=== PATIENT | female | born 1945 | race Caucasian/White ===

== ENCOUNTER → 2018-08-02 14:48 | Outpatient (CLI) | payer MEDICARE, SELFPAY ==
--- NOTE | 2018-08-02 14:59 | CA_ITS ---
PROCEDURE: 2-D M-mode and color Doppler study INDICATIONS FOR THE TEST: Chest pain COPDX Heart Murmur Tobacco SmokingX Palpitations Fatigue Syncope EdemaX Hypertension Diabetes Mellitus Rheumatic Fever SOBXDOEXObesity Hyperlipidemia Family History HD Additional History PHTN PATIENT INFORMATION HEIGHT: 57 WEIGHT:88 GENDER: Female B/P:140/70 2-D/M-MODE INTERPRETATION: 2-D MEASUREMENTS OBSERVED VALUES IN CMS Right Ventricular Dimension (RVDd) 2.6 Interventricular Septum (Thickness)(IVsd) .8 Left Ventricular Internal Dimensions(LVIDd) 4.6 Left Ventricular Posterior Wall (Thickness)(LVPWd) .8 Aortic Root 3.2 Aortic Cusp Separation 1.7 Left Atrial Dimensions (LAD) 3.3 2D 1. Left atrium is mildly enlarged, left ventricle is normal size, there is no concentric left ventricular hypertrophy, visually estimated ejection fraction of 55% with no regional wall motion abnormality. 2. The right atrium and right ventricle are relatively normal size and function. 3. The aortic valve is thickened and calcified leaflet continue to display mobility. 4. The mitral and tricuspid valve leaflets are minimally thickened. 5. The pulmonic valve is poorly visualized. 6. No significant pericardial effusion noted. DOPPLER INTERROGATION: Doppler interrogation of the aortic, mitral and tricuspid valvular presence of significant aortic, mild mitral and tricuspid regurgitation, tricuspid regurgitation jet velocity is inadequate for calculation of the right ventricular systolic pressure, tissue Doppler is indicated of raised left atrial pressure. CONCLUSION: 1. Mildly enlarged left atrium, normal left ventricular size, visually estimated ejection fraction 55% with no regional wall motion abnormality, tissue Doppler evidence of raised left atrial pressure. 2. Severe aortic, mild mitral and tricuspid regurgitation 3. No significant pericardial effusion noted.
== END ==
PROVIDERS: PCP Family Medicine; Visit Provider Family Medicine
DX: R60.0 Localized edema (principal); I27.20 Pulmonary hypertension, unspecified
CPT/HCPCS: 93306

== ENCOUNTER 2018-08-15 13:05 | Inpatient (IN) ==
[2018-08-15 13:50] LABS: Basophils # 0.1 K/mm3 (0-0.2); Basophils % 0.5 % (0.1-2.0); Eosinophils % 0.1 % (0.1-12.0); Hematocrit 35.9 % (37.0-47.0); Hemoglobin 11.2 g/dL (12.2-16.2); Lymphocytes % 6.8 % (10-50); Mean Corpuscular HGB Conc 31.2 g/dL (31.8-35.4); Mean Corpuscular Hemoglobin 27.8 pg (27.0-31.2); Mean Corpuscular Volume 89.2 fl (81-99); Mean Platelet Volume 7.6 fl (7.4-10.4); Monocytes % 6.4 % (1.7-9.3); Neutrophils % 86.3 % (37.0-80.0); Platelet Count 247 K/mm3 (142-424); Red Blood Count 4.02 M/mm3 (4.20-5.40); Red Cell Distribution Width 14.7 % (11.5-17.5)
[2018-08-15 14:02] LABS: Albumin Level 3.1 gm/dL (3.4-5.0); Albumin/Globulin Ratio 0.8 (1.1-1.8); Anion Gap 13.8 mEq/L (5-15); Bilirubin,Total 0.6 mg/dL (0.2-1.0); Globulin 4.1 gm/dl (1.3-3.2); Total Protein,Serum 7.2 gm/dL (6.4-8.2)
[2018-08-15 14:05] LABS: Potassium 2.8 mmoL/L (3.5-5.1)
[2018-08-15 14:14] LABS: Eosinophils % 1 % (0-3); Lymphocytes % 6 % (10-50); Monocytes % 5 % (2-9); Neutrophils % 85 % (42-76); Total Cells Counted 100
[2018-08-15 14:16] LABS: Creatine Kinase 38 U/L (26-192)
--- NOTE | 2018-08-15 14:19 | Emergency Department Note ---
ED Disposition Clinical Impression: Acute exacerbation of chronic obstructive airways disease, Tobacco use disorder, Hypokalemia, Shortness of breath URI (upper respiratory infection) Qualifiers: URI type: unspecified URI Qualified Code(s): J06.9 - Acute upper respiratory infection, unspecified Disposition: Home, Self-Care Condition on Discharge: Fair Instructions: DI for Chronic Bronchitis, DI for Chronic Obstructive Pulmonary Disease, DI for Shortness of Breath Additional Instructions: DI for Hypokalemia Referrals: Clayton Isabel MD [Primary Care Provider] - Time of Disposition: 16:46 - Critical Care Critical Care Time: Yes (60) Attestation: On 08/15/18, the high probability of a clinically significant, sudden or life threatening deterioration of the following system(s) required my full and direct attention, intervention and personal management. The time I documented below is in addition to time spent performing reported procedures but includes the following listed in this critical care notation. Total Critical Care Time: 60 Vital system(s) involved:: Respiratory Failure My critical care processes included: Assessment & monitoring of V/S, Initial and Re-exams, Data Review/Interpretation, Coordinating Care, Medication Orders and management, Documentation Medical Decision Making - Medical Records Medical records reviewed: Yes: I reviewed the patient's medical records. - Vamsi Inquiry Pt receiving controlled substance: No Vamsi was queried for this patient: No Vital Signs: 08/15/18 13:06 08/15/18 13:36 08/15/18 14:06 Temperature 99.5 F 99.3 F 99.3 F Temperature Source Oral Oral Oral Pulse Rate [Right Radial] 107 H 99 H 98 H Respiratory Rate 22 22 20 Blood Pressure [Right Arm] 102/59 L 118/58 L 115/55 L Blood Pressure Mean [Right Arm] 73 78 75 Blood Pressure Source [Right Arm] Automatic Cuff Automatic Cuff Automatic Cuff Blood Pressure Position [Right Arm] Sitting Supine Supine 02 Sat by Pulse Oximetry 74 L 95 94 L Oxygen Delivery Method Room Air Nasal Cannula Nasal Cannula Oxygen Flow Rate (LPM) 3 3 2 08/15/18 14:30 08/15/18 14:36 08/15/18 15:00 Temperature 99.6 F 99.7 F H Temperature Source Oral Oral Pulse Rate [Right Radial] 99 H 100 H Respiratory Rate 18 20 Blood Pressure [Right Arm] 116/54 L 117/55 L Blood Pressure Mean [Right Arm] 74 75 Blood Pressure Source [Right Arm] Automatic Cuff Automatic Cuff Blood Pressure Position [Right Arm] Supine Sitting 02 Sat by Pulse Oximetry 94 L 92 L 92 L Oxygen Delivery Method BiPAP Nasal Cannula Nasal Cannula Oxygen Flow Rate (LPM) 2 2 08/15/18 15:30 08/15/18 16:00 08/15/18 16:36 Temperature 99.0 F Temperature Source Oral Pulse Rate [Right Radial] 89 125 H 132 H Respiratory Rate 18 32 H Blood Pressure [Right Arm] 103/43 L 128/66 138/82 Blood Pressure Mean [Right Arm] 63 86 100 Blood Pressure Source [Right Arm] Automatic Cuff Automatic Cuff Automatic Cuff Blood Pressure Position [Right Arm] Sitting Sitting Sitting 02 Sat by Pulse Oximetry 96 97 91 L Oxygen Delivery Method Nasal Cannula Non-Rebreather Oxygen Flow Rate (LPM) 2 15 - Lab Data Lab results reviewed: Yes: I reviewed the patient's lab results. Lab Results 08/15/18 13:33: WBC 15.0 H, RBC 4.02 L, Hgb 11.2 L, Hct 35.9 L, MCV 89.2, MCH 27.8, MCHC 31.2 L, RDW 14.7, Plt Count 247, MPV 7.6, Neut % (Auto) 86.3 H, Lymph % (Auto) 6.8 L, [place] % (Auto) 6.4, Eos % (Auto) 0.1, Baso % (Auto) 0.5, Neut # (Auto) 13.0 H, Lymph # (Auto) 1.0, [place] # (Auto) 1.0, Eos # (Auto) 0.0, Baso # (Auto) 0.1, Total Counted 100, Neutrophils % (Manual) 85 H, Band Neutrophils % 3.0, Lymphocytes % (Manual) 6 L, Monocytes % (Manual) 5, Eosinophils % (Manual) 1, Platelet Estimate Normal 08/15/18 13:33: Sodium 136, Potassium 2.8 L*, Chloride 96 L, Carbon Dioxide 29, Anion Gap 13.8, BUN 10, Creatinine 0.87, Estimated Creat Clear 31, Estimated GFR 64, Est GFR ( Amer) 77, Glucose 133 H, Calcium 9.0, Total Bilirubin 0.6, AST 25, ALT 26, Alkaline Phosphatase 142 H, Total Protein 7.2, Albumin 3.1 L, Globulin 4.1 H, Albumin/Globulin Ratio 0.8 L 08/15/18 13:33: Lactate 1.7 08/15/18 13:33: Total Creatine Kinase 38, CK-MB (CK-2) 1.5, CK-MB (CK-2) Rel Ind ex 3.9, Troponin I < 0.02 08/15/18 13:36: Specimen Source L radial, O2 % 2lpm, ABG pH 7.38, ABG pCO2 47.9 H, ABG pO2 61.4 L, ABG HCO3 27.4 H, ABG Total CO2 28.9 H, ABG O2 Saturation 91, ABG Base Excess 2.3, Cirilo Test Acceptable 08/15/18 16:19: Specimen Source R. radial, O2 % 100% nrb, ABG pH 7.21 L*, ABG pCO2 67.0 H, ABG pO2 184.1 H, ABG HCO3 26.1 H, ABG Total CO2 28.1 H, ABG O2 Saturation 99, ABG Base Excess -1.8, Cirilo Test Acceptable Result diagrams: 08/15/18 13:33 08/15/18 13:33 Orders (Tests/Meds): ED MEDICATIONS Generic Name Dose Route Start Last Admin Trade Name Freq PRN Reason Stop Dose Admin Sodium Chloride 1,000 mls @ 75 mls/hr 08/15/18 14:30 08/15/18 14:31 Sod Chlor 0.9% 1000ml Bag IV 09/14/18 14:29 75 mls/hr .[id number] DUANE Administration Sodium Chloride 1,000 mls @ 999 mls/hr 08/15/18 17:00 08/15/18 16:49 Sod Chlor 0.9% 1000ml Bag IV 08/15/18 18:00 999 mls/hr .[id number] DUANE Administration Discontinued Medications Generic Name Dose Route Start Last Admin Trade Name Freq PRN Reason Stop Dose Admin Guaifenesin 10 ml 08/15/18 14:25 08/15/18 14:31 Robitussin Dm 200mg/20mg 10ml Udc PO 08/15/18 14:26 10 ml ONCE ONE Administration Potassium Chloride/Water 100 mls @ 100 mls/hr 08/15/18 14:09 08/15/18 14:18 Potassium Chloride 10meq/100ml Ivpb IV 08/15/18 15:08 100 mls/hr ONCE ONE Administration Ceftriaxone Sodium 1 gm/ 50 mls @ 100 mls/hr 08/15/18 14:26 08/15/18 15:49 Sodium Chloride IV 08/15/18 14:55 100 mls/hr ONCE ONE Administration Protocol Methylprednisolone Sodium Succinate 125 mg 08/15/18 16:08 08/15/18 16:09 Solu-Medrol 125mg/2ml Vial IV 08/15/18 16:09 125 mg ONCE ONE Administration Ondansetron HCl 4 mg 08/15/18 14:14 08/15/18 14:18 Zofran 4mg/2ml Vial IV 08/15/18 14:15 4 mg ONCE ONE Administration Ondansetron HCl 4 mg 08/15/18 16:08 08/15/18 16:10 Zofran 4mg/2ml Vial IV 08/15/18 16:09 4 mg ONCE ONE Administration Potassium Chloride 40 meq 08/15/18 14:08 08/15/18 15:28 Klor-Con 20meq Tablet PO 08/15/18 14:09 40 meq ONCE ONE Administration ORDERS Category Date Time Status Blood Culture Stat Micro 08/15/18 13:28 Ordered ABG [Arterial Blood Gas] Stat RT 08/15/18 16:09 Ordered Arterial Blood Gas Stat RT 08/15/18 13:36 Ordered - Radiology Data #1 Image(s): Chest Image Reviewed: Yes I reviewed the patient's radiology results, Yes I have reviewed radiologist's interpretation Preliminary Findings: Normal/NAD - Physician Consults Physician Consulted: Katie Time: 16:37 (Admit) Reason -: Admission, Pt condition - Reevaluation(s) Time: 16:00 (Patient started to vomit and choke and became more SOB;Duoneb,Solumedrol,BIPAP started.Will be admitted.) Time: 16:24 (Not doing well. Not tolerating BIPAP. Will intubate.) Time reevaluation 3: 16:35 (Tolerating BIPAP now. ABG shows 7.21/67/187/99%. Admit) Resp/SOB HPI - General Chief Complaint: Shortness of Breath/Dyspnea Stated Complaint: SOA Time Seen by Provider: 08/15/18 13:25 Mode of Arrival: Wheelchair Source of Information: Patient Limitations: No Limitations Description of Symptoms (Recalled from ER Triage Doc. by RN): SHORTNESS OF BREATH SINCE THIS MORNING. WENT TO [facility] AND WAS TOLD TO COME TO ER FOR LOW O2 - History of Present Illness MD Complaint: shortness of breath, cough Onset (ago): day(s) (today) Context: other (cough,voice loss) Severity: moderate Consistency/Duration: constant Relieving factors: nothing Exacerbating factors: nothing Known history of: COPD Associated symptoms: cough, nausea/vomiting Treatment prior to arrival: bronchodilator, diuretics - Related Data Home oxygen amount: 2 liters Home Medications Medication Instructions Recorded Confirmed Albuterol Sulfate [Albuterol HFA 1 - 2 puffs IH Q4-6H PRN 08/15/18 08/15/18 Inhaler] Magnesium Amino Acid Chelate 100 mg PO DAILY 08/15/18 08/15/18 [Magnesium] Montelukast Sodium [Singulair 10mg 10 mg PO PM 08/15/18 08/15/18 tablet] Primidone [Mysoline] 50 mg PO TID 08/15/18 08/15/18 Tiotropium Titus [Spiriva 1 puff INHALATION DAILY 08/15/18 08/15/18 18mcg/puff inhaler] Allergies Allergy/AdvReac Type Severity Reaction Status Date / Time doxycycline [DOXYCYCLINE] Allergy Severe I-HIVES, Verified 08/15/18 14:30 ITCHING, NAUSEA/VOMITING Sulfa (Sulfonamide Allergy Unknown Verified 08/15/18 14:30 Antibiotics) [facility] History I have reviewed the patient's past medical history: Yes ROS Obtained: Yes All systems reviewed & no additional complaints - Constitutional Constitutional: Reports system reviewed and no additional complaints, except as docu, Denies chills, Denies fever(s) - ENT Ears, Nose, Mouth, and Throat: Reports system reviewed and no additional complaints, except as docu, Reports change in voice, Denies nasal congestion, Denies nasal obstruction - Cardiovascular Cardiovascular: Reports system reviewed and no additional complaints, except as docu, Denies chest pain, Reports dyspnea - Respiratory Respiratory: Yes system reviewed and no additional complaints, except as docu, Yes cough, Yes non-productive cough, Yes dyspnea, No stridor, No wheezing - Gastrointestinal Gastrointestingal: Reports: system reviewed and no additional complaints, except as docu, nausea, vomiting. Denies: abdominal pain - Neurologic Neurologic: Reports system reviewed and no additional complaints, except as docu Physical Exam - General General appearance: alert, in no apparent distress - Head Head exam: atraumatic, normocephalic, normal inspection - ENT ENT exam: Present: normal exam, normal oropharynx, mucous membranes moist, TM's normal bilaterally, normal external ear exam - Neck Neck exam: Present: normal inspection, full ROM, trachea midline. Absent: meningismus, lymphadenopathy - Respiratory Respiratory exam: Present: respiratory distress, other (Reduced AE bilaterally.) - Cardiovascular Cardiovascular exam: Present: regular rate, normal rhythm. Absent: JVD - Abdominal Exam Abdominal exam: Present: soft, normal bowel sounds. Absent: distention, tenderness, guarding - Extremities Exam Extremities exam: Present: normal inspection, full ROM, normal capillary refill. Absent: calf tenderness - Back Exam Back exam: Present: normal inspection. Absent: tenderness - Neurological Exam Neurological exam: Present: alert, oriented X3 - Psychiatric Psychiatric exam: Present: normal affect, normal mood - Skin Skin exam: Present: warm, dry, intact, normal color
[2018-08-15 14:20] LABS: ABG Base Excess 2.3 mmol/L (-2.4-2.3); ABG HCO3 27.4 mmhg (22.0-26.0); ABG Oxygen Saturation 91 % (90-100); ABG PCO2 47.9 mmhg (35.0-45.0); ABG PH 7.38 mmol/L (7.35-7.45); ABG PO2 61.4 mmhg (80-100); ABG TCO2 28.9 mmhg (23-27)
[2018-08-15 14:21] LABS: Allen's Test ACCEPTABLE; Oxygen 2LPM %
[2018-08-15 16:23] LABS: ABG Base Excess -1.8 mmol/L (-2.4-2.3); ABG HCO3 26.1 mmhg (22.0-26.0); ABG Oxygen Saturation 99 % (90-100); ABG PH 7.21 mmol/L (7.35-7.45); ABG PO2 184.1 mmhg (80-100); ABG TCO2 28.1 mmhg (23-27)
[2018-08-15 16:28] LABS: Allen's Test ACCEPTABLE; Oxygen 100% NRB %
[2018-08-15 18:14] LABS: ABG Base Excess -2.9 mmol/L (-2.4-2.3); ABG HCO3 23.4 mmhg (22.0-26.0); ABG Oxygen Saturation 93 % (90-100); ABG PCO2 48.4 mmhg (35.0-45.0); ABG PO2 70.5 mmhg (80-100); ABG TCO2 24.9 mmhg (23-27)
[2018-08-15 18:16] LABS: Oxygen 40% %
[2018-08-15 18:17] LABS: Allen's Test ACCEPTABLE; Tidal Volume BIPAP 14/6
--- NOTE | 2018-08-15 21:22 | History & Physical Report ---
*Admission Date: 08/15/18 <Cadence Hooper 08/15/18 21:53> *Chief complaint: SOA <Cadence Hooper 08/15/18 21:53> *History of present illness: Ms. Mahoney is a 73yo female with a history of oxygen dependent COPD. She has been staying with her daughter for the past 10 days since her daughter's . She did not have her oxygen or potassium while at her home. She normally sleeps with oxygen every night and uses it as needed during the day. She began getting a sore throat and cough last night. She then began getting SOA. She placed oxygen on this am and took a few neb treatments. She did not feel better and called to make an appt at [facility]. She progressively got worse and went to the [facility] instead. Her oxygen was in the low 80's, so they recommended she go to the ER. Her first blood gas in the ER showed a pO2 of 61.4 and a pCO2 of 47.9. It appears she was initially started on oxygen at 2L/min via NC. After the blood gas, she was started on a 100% Nonrebreather. Her next blood gas showed a pO2 of 184.1 and a pCO2 of 67. She was then placed on BIPAP. Her potassium was low and was replaced. Her CXR showed chronic changes. Her WBC was elevated. She was admitted for further evaluation and treatment of her COPD exacerbation. 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, Vit D deficiency <Cadence Hooper 08/15/18 21:53> Laterality Cases: Bilateral: Tonsillectomy <Cadence Hooper 08/15/18 21:53> Other Surgeries: Yes: Cholecystectomy, Tubal Ligation, Other <Cadence Hooper 08/15/18 21:53> Amputation: Yes <Cadence Hooper 08/15/18 21:53> Comment: Right foot bunionectomy, Right knee arthroscopy, T12 kyphoplasty, Esophageal dilatation <Cadence Hooper 08/15/18 21:53> - *Social History Educational Level: Completed High School <Cadence Hooper 08/15/18 21:53> Smoking Status: Current every day smoker <Cadence Hooper 08/15/18 21:53> Tobacco Type: cigarettes <Cadence Hooper 08/15/18 21:53> # Packs/Day (cigarettes): 1 <Cadence Hooper 08/15/18 21:53> #Yrs smoked (if former smoker): 58 <Cadence Hooper 08/15/18 21:53> Alcohol Intake: never <Cadence Hooper 08/15/18 21:53> Occupational Status: retired <Cadence Hooper 08/15/18 21:53> Housing: house <Cadence Hooper 08/15/18 21:53> Household Members: family <Cadence Hooper 08/15/18 21:53> - Psychiatric History Expresses thoughts of harming self/others: None <Cadence Hooper 08/15/18 21:53> Suicide Plan Description: No Plan <Cadence Hooper 08/15/18 21:53> *Family Hx:: Heart Attack <Cadence Hooper 08/15/18 21:53> Comment: COPD, Alzheimers <Cadence Hooper 08/15/18 21:53> Review of Systems - Constitutional Reports weakness, Denies fever(s) <Cadence Hooper 08/15/18 21:53> - Eyes Denies blurry vision, Denies double vision <Cadence Hooper 08/15/18 21:53> - ENT Reports nasal congestion, Reports sore throat <Cadence Hooper 08/15/18 21:53> - *Cardiovascular Reports chest pain, Reports shortness of breath, Reports rapid, pounding, or irregular heartbeat <Cadence Hooper 08/15/18 21:53> - *Respiratory Reports chest congestion, Reports cough, Reports shortness of breath, Reports wheezing <Cadence Hooper 08/15/18 21:53> - *Gastrointestinal Reports loose stools, Reports nausea, Reports vomiting, Denies abdominal pain <Cadence Hooper - 08/15/18 21:53> - *Genitourinary Denies difficulty urinating, Denies painful urination <Cadence Hooper - 08/15/18 21:53> - *Musculoskeletal Reports back pain <Cadence Hooper - 08/15/18 21:53> - *Neurologic Reports headache(s), Reports dizziness, Reports weakness <Cadence Hooper - 08/15/18 21:53> Meds Home Medications Medication Instructions Recorded Confirmed Type Albuterol Sulfate [Albuterol HFA 1 - 2 puffs IH Q4-6H PRN 08/15/18 08/15/18 History Inhaler] Duloxetine HCl [Cymbalta] 60 mg PO DAILY 08/15/18 08/15/18 History Fluticasone/Vilanterol [Breo 1 each IH DAILY 08/15/18 08/15/18 History Ellipta 100-25 Mcg INH] Furosemide [Furosemide 40MG tAB] 40 mg PO DAILY 08/15/18 08/15/18 History Magnesium Amino Acid Chelate 100 mg PO DAILY 08/15/18 08/15/18 History [Magnesium] Montelukast Sodium [Singulair 10mg 10 mg PO PM 08/15/18 08/15/18 History tablet] Potassium Chloride [K-Tab ER 10 10 meq PO DAILY 08/15/18 08/15/18 History mEq] Pregabalin [Lyrica 100mg Cap] 100 mg PO DAILY 08/15/18 08/15/18 History Primidone [Mysoline] 50 mg PO TID 08/15/18 08/15/18 History Umeclidinium [place] [Incruse 62.5 mcg IH DAILY 08/15/18 08/15/18 History Ellipta] <Clayton Isabel - 08/16/18 09:01> Allergies Allergy/AdvReac Type Severity Reaction Status Date / Time doxycycline [DOXYCYCLINE] Allergy Severe I-HIVES, Verified 08/15/18 14:30 ITCHING, NAUSEA/VOMITING Sulfa (Sulfonamide Allergy Unknown Verified 08/15/18 14:30 Antibiotics) <Clayton Isabel - 08/16/18 09:01> Exam Vital signs and Labs for Last 24 Hours: Temp Pulse Resp BP Pulse Ox 97.7 F 110 H 35 H 111/37 L 100 08/16/18 07:54 08/16/18 08:00 08/15/18 17:57 08/16/18 06:01 08/16/18 06:01 Laboratory Results - last 24 hr 08/15/18 13:33: WBC 15.0 H, RBC 4.02 L, Hgb 11.2 L, Hct 35.9 L, MCV 89.2, MCH 27.8, MCHC 31.2 L, RDW 14.7, Plt Count 247, MPV 7.6, Neut % (Auto) 86.3 H, Lymph % (Auto) 6.8 L, [place] % (Auto) 6.4, Eos % (Auto) 0.1, Baso % (Auto) 0.5, Neut # (Auto) 13.0 H, Lymph # (Auto) 1.0, [place] # (Auto) 1.0, Eos # (Auto) 0.0, Baso # (Auto) 0.1, Total Counted 100, Neutrophils % (Manual) 85 H, Band Neutrophils % 3.0, Lymphocytes % (Manual) 6 L, Monocytes % (Manual) 5, Eosinophils % (Manual) 1, Platelet Estimate Normal 08/15/18 13:33: Sodium 136, Potassium 2.8 L*, Chloride 96 L, Carbon Dioxide 29, Anion Gap 13.8, BUN 10, Creatinine 0.87, Estimated Creat Clear 31, Estimated GFR 64, Est GFR ( Amer) 77, Glucose 133 H, Calcium 9.0, Total Bilirubin 0.6, AST 25, ALT 26, Alkaline Phosphatase 142 H, Total Protein 7.2, Albumin 3.1 L, Globulin 4.1 H, Albumin/Globulin Ratio 0.8 L 08/15/18 13:33: Lactate 1.7 08/15/18 13:33: Total Creatine Kinase 38, CK-MB (CK-2) 1.5, CK-MB (CK-2) Rel Index 3.9, Troponin I < 0.02 08/15/18 13:36: Specimen Source L radial, O2 % 2lpm, ABG pH 7.38, ABG pCO2 47.9 H, ABG pO2 61.4 L, ABG HCO3 27.4 H, ABG Total CO2 28.9 H, ABG O2 Saturation 91, ABG Base Excess 2.3, Cirilo Test Acceptable 08/15/18 16:19: Specimen Source R. radial, O2 % 100% nrb, ABG pH 7.21 L*, ABG pCO2 67.0 H, ABG pO2 184.1 H, ABG HCO3 26.1 H, ABG Total CO2 28.1 H, ABG O2 Saturation 99, ABG Base Excess -1.8, Cirilo Test Acceptable 08/15/18 18:12: Specimen Source R. radial, O2 % 40%, ABG pH 7.30 L, ABG pCO2 48.4 H, ABG pO2 70.5 L, ABG HCO3 23.4, ABG Total CO2 24.9, ABG O2 Saturation 93, ABG Base Excess -2.9 L, Cirilo Test Acceptable, Vent Rate 20, Tidal Volume Bipap 14/6 08/15/18 20:20: Troponin I < 0.02 08/16/18 02:05: Troponin I < 0.02 08/16/18 05:55: WBC 13.0 H, RBC 3.35 L, Hgb 9.7 L D, Hct 30.4 L, MCV 90.7, MCH 29.3, MCHC 32.3, RDW 14.7, Plt Count 244, MPV 7.7, Neut % (Auto) 84.1 H, Lymph % (Auto) 9.0 L, [place] % (Auto) 6.7, Eos % (Auto) 0.0 L, Baso % (Auto) 0.1, Neut # (Auto) 10.9 H, Lymph # (Auto) 1.2, [place] # (Auto) 0.9, Eos # (Auto) 0.0, Baso # (Auto) 0.0 08/16/18 05:55: Sodium 137, Potassium 3.6 D, Chloride 102, Carbon Dioxide 27, Anion Gap 11.6, BUN 10, Creatinine 0.73, Estimated Creat Clear 32, Estimated GFR 78, Est GFR ( Amer) 94 D, Glucose 131 H, Calcium 8.4 L, Triglycerides 46, Cholesterol 133 L, LDL Cholesterol 58, VLDL Cholesterol 9, HDL Cholesterol 66, Cholesterol/HDL Ratio 2.0 <Clayton Isabel - 08/16/18 09:01> Temp Pulse Resp BP Pulse Ox 98.4 F 107 H 35 H 122/63 98 08/15/18 17:57 08/15/18 17:57 08/15/18 17:57 08/15/18 17:57 08/15/18 17:57 Laboratory Results - last 24 hr 08/15/18 13:33: WBC 15.0 H, RBC 4.02 L, Hgb 11.2 L, Hct 35.9 L, MCV 89.2, MCH 27.8, MCHC 31.2 L, RDW 14.7, Plt Count 247, MPV 7.6, Neut % (Auto) 86.3 H, Lymph % (Auto) 6.8 L, [place] % (Auto) 6.4, Eos % (Auto) 0.1, Baso % (Auto) 0.5, Neut # (Auto) 13.0 H, Lymph # (Auto) 1.0, [place] # (Auto) 1.0, Eos # (Auto) 0.0, Baso # (Auto) 0.1, Total Counted 100, Neutrophils % (Manual) 85 H, Band Neutrophils % 3.0, Lymphocytes % (Manual) 6 L, Monocytes % (Manual) 5, Eosinophils % (Manual) 1, Platelet Estimate Normal 08/15/18 13:33: Sodium 136, Potassium 2.8 L*, Chloride 96 L, Carbon Dioxide 29, Anion Gap 13.8, BUN 10, Creatinine 0.87, Estimated Creat Clear 31, Estimated GFR 64, Est GFR ( Amer) 77, Glucose 133 H, Calcium 9.0, Total Bilirubin 0.6, AST 25, ALT 26, Alkaline Phosphatase 142 H, Total Protein 7.2, Albumin 3.1 L, Globulin 4.1 H, Albumin/Globulin Ratio 0.8 L 08/15/18 13:33: Lactate 1.7 08/15/18 13:33: Total Creatine Kinase 38, CK-MB (CK-2) 1.5, CK-MB (CK-2) Rel Index 3.9, Troponin I < 0.02 08/15/18 13:36: Specimen Source L radial, O2 % 2lpm, ABG pH 7.38, ABG pCO2 47.9 H, ABG pO2 61.4 L, ABG HCO3 27.4 H, ABG Total CO2 28.9 H, ABG O2 Saturation 91, ABG Base Excess 2.3, Cirilo Test Acceptable 08/15/18 16:19: Specimen Source R. radial, O2 % 100% nrb, ABG pH 7.21 L*, ABG pCO2 67.0 H, ABG pO2 184.1 H, ABG HCO3 26.1 H, ABG Total CO2 28.1 H, ABG O2 Saturation 99, ABG Base Excess -1.8, Cirilo Test Acceptable 08/15/18 18:12: Specimen Source R. radial, O2 % 40%, ABG pH 7.30 L, ABG pCO2 48.4 H, ABG pO2 70.5 L, ABG HCO3 23.4, ABG Total CO2 24.9, ABG O2 Saturation 93, ABG Base Excess -2.9 L, Cirilo Test Acceptable, Vent Rate 20, Tidal Volume Bipap 14/0308/15/18 20:20: Troponin I < 0.02 <Cadence Hooper - 08/15/18 21:53> I & O for Last 24 hours: Intake & Output 08/13/18 08/14/18 08/15/18 08/16/18 11:59 11:59 11:59 11:59 Intake Total 1326 / 1326 Output Total 0 / 0 Balance 1326 / 1326 Weight 89 lb 3 oz <Clayton Isabel - 08/16/18 09:01> Intake & Output 08/13/18 08/14/18 08/15/18 08/16/18 11:59 11:59 11:59 11:59 Output Total 0 / 0 Balance 0 / 0 Weight 85 lb 3 oz <Cadence Hooper - 08/15/18 21:53> Microbiology Reports for the Last 24 Hours: Microbiology 08/15/18 21:26 Sputum - Expectorated Sputum Gram Stain - Final <Clayton Isabel - 08/16/18 09:01> - Constitutional Comments: Does not appear to feel well, BIPAP in place <Cadence Hooper 08/15/18 21:53> - *Routine HEENT Exam Head: Present: normocephalic <Cadence Hooper 08/15/18 21:53> Eye: Present: EOMI, PERRL <Cadence Hooper 08/15/18 21:53> ENT: Present: mucous membranes dry [facility] 08/15/[facility] 21:53> - *Routine Neck Exam Present: supple. Absent: lymphadenopathy [facility] 08/15/18 21:53> - *Routine Respiratory Exam Present: wheezes (bilaterally), diminished air movement <[facility] 08/15/18 21:53> - *Routine Cardiovascular Exam Present: tachycardia [facility] 08/15/18 21:53> - *Routine Abdominal Exam Present: soft, normoactive bowel sounds. Absent: tenderness [facility] 08/15/18 21:53> - *Routine Extremities Exam Absent: cyanosis, clubbing, edema <[facility] 08/15/18 21:53> - *Routine Skin Exam Present: warm. Absent: rash <[facility] 08/15/18 21:53> - *Routine Neurological Exam Present: alert, oriented X3 <[facility] 08/15/18 21:53> H&P: Result - Impressions CXR - Chronic changes, no acute finding <[facility] 08/15/18 21:53> Assessment and Plan (1) Acute exacerbation of chronic obstructive airways disease Current visit: Yes Status: Acute Category: Medical Code(s): J44.1 - Chronic obstructive pulmonary disease with (acute) exacerbation (2) Leukocytosis Current visit: Yes Status: Acute Category: Medical Code(s): D72.829 - Elevated white blood cell count, unspecified (3) Hypokalemia Current visit: Yes Status: Acute Category: Medical Code(s): E87.6 - Hypokalemia (4) Hypercapnia Current visit: Yes Status: Acute Category: Medical Code(s): R06.89 - Other abnormalities of breathing (5) Tobacco use disorder Current visit: Yes Status: Chronic Category: Medical Code(s): F17.200 - Nicotine dependence, unspecified, uncomplicated (6) Oxygen dependent Current visit: Yes Status: Chronic Category: Medical Code(s): Z99.81 - Dependence on supplemental oxygen (7) COPD (chronic obstructive pulmonary disease) Current visit: Yes Status: Chronic Category: Medical Code(s): J44.9 - Chronic obstructive pulmonary disease, unspecified <Cadence Hooper - 08/15/18 21:18> (1) Hypercapnic respiratory failure Current visit: Yes Status: Acute Category: Medical Code(s): J96.92 - Respiratory failure, unspecified with hypercapnia (2) Acute exacerbation of chronic obstructive airways disease Current visit: Yes Status: Acute Category: Medical Code(s): J44.1 - Chronic obstructive pulmonary disease with (acute) exacerbation (3) Leukocytosis Current visit: Yes Status: Acute Category: Medical Code(s): D72.829 - Elevated white blood cell count, u nspecified (4) Hypokalemia Current visit: Yes Status: Acute Category: Medical Code(s): E87.6 - Hypokalemia (5) Tobacco use disorder Current visit: Yes Status: Chronic Category: Medical Code(s): F17.200 - Nicotine dependence, unspecified, uncomplicated (6) Oxygen dependent Current visit: Yes Status: Chronic Category: Medical Code(s): Z99.81 - Dependence on supplemental oxygen (7) COPD (chronic obstructive pulmonary disease) Current visit: Yes Status: Chronic Category: Medical Code(s): J44.9 - Chronic obstructive pulmonary disease, unspecified <MaameClayton Ki - 08/16/18 09:01> - Assessment and plan all Dx Assessment and Plan for all problems:: Symptoms started with hoarseness and drainage 2 days ago. ? viral syndrome. Concur with plan as outlined above. <Clayton Isabel - 08/16/18 09:01> Last ABG has improved with patient on BIPAP. Will start on zithromax, rocephin, IVF's with potassium, duonebs, and some of her home medications. Will get labs tomorrow. She has been given a large dose of solumedrol today. Will start continued steroids tomorrow. <Cadence Hooper - 08/15/18 21:53>
[2018-08-16 06:21] LABS: Basophils % 0.1 % (0.1-2.0); Hematocrit 30.4 % (37.0-47.0); Lymphocytes # 1.2 K/mm3 (0.7-4.5); Mean Corpuscular HGB Conc 32.3 g/dL (31.8-35.4); Mean Corpuscular Hemoglobin 29.3 pg (27.0-31.2); Mean Corpuscular Volume 90.7 fl (81-99); Mean Platelet Volume 7.7 fl (7.4-10.4); Monocytes # 0.9 K/mm3 (0.1-1.0); Monocytes % 6.7 % (1.7-9.3); Neutrophils # 10.9 K/mm3 (1.8-7.8); Neutrophils % 84.1 % (37.0-80.0); Platelet Count 244 K/mm3 (142-424); Red Blood Count 3.35 M/mm3 (4.20-5.40); Red Cell Distribution Width 14.7 % (11.5-17.5)
[2018-08-16 06:33] LABS: Hemoglobin 9.7 g/dL (12.2-16.2)
[2018-08-16 06:51] LABS: Anion Gap 11.6 mEq/L (5-15); Calcium 8.4 mg/dL (8.5-10.1); Potassium 3.6 mmoL/L (3.5-5.1)
--- NOTE | 2018-08-16 08:25 | Progress Note ---
<Cadence Hooper - Last Filed: 08/16/18 08:23> Internal Medicine - PN: Subj *Date: 08/16/18 *Time: 08:23 Interval history: Patient states she is feeling much better today. Her BiPAP has been removed and she has been placed on nasal cannula to eat breakfast. She is eating well. Her oxygen saturation is 96% on 2-1/2 L. Exam Vital signs and Labs for Last 24 Hours: Temp Pulse Resp BP Pulse Ox 97.7 F 126 H 35 H 111/37 L 100 08/16/18 07:54 08/16/18 06:01 08/15/18 17:57 08/16/18 06:01 08/16/18 06:01 Laboratory Results - last 24 hr 08/15/18 13:33: WBC 15.0 H, RBC 4.02 L, Hgb 11.2 L, Hct 35.9 L, MCV 89.2, MCH 27.8, MCHC 31.2 L, RDW 14.7, Plt Count 247, MPV 7.6, Neut % (Auto) 86.3 H, Lymph % (Auto) 6.8 L, [place] % (Auto) 6.4, Eos % (Auto) 0.1, Baso % (Auto) 0.5, Neut # (Auto) 13.0 H, Lymph # (Auto) 1.0, [place] # (Auto) 1.0, Eos # (Auto) 0.0, Baso # (Auto) 0.1, Total Counted 100, Neutrophils % (Manual) 85 H, Band Neutrophils % 3.0, Lymphocytes % (Manual) 6 L, Monocytes % (Manual) 5, Eosinophils % (Manual) 1, Platelet Estimate Normal 08/15/18 13:33: Sodium 136, Potassium 2.8 L*, Chloride 96 L, Carbon Dioxide 29, Anion Gap 13.8, BUN 10, Creatinine 0.87, Estimated Creat Clear 31, Estimated GFR 64, Est GFR ( Amer) 77, Glucose 133 H, Calcium 9.0, Total Bilirubin 0.6, AST 25, ALT 26, Alkaline Phosphatase 142 H, Total Protein 7.2, Albumin 3.1 L, Globulin 4.1 H, Albumin/Globulin Ratio 0.8 L 08/15/18 13:33: Lactate 1.7 08/15/18 13:33: Total Creatine Kinase 38, CK-MB (CK-2) 1.5, CK-MB (CK-2) Rel Index 3.9, Troponin I < 0.02 08/15/18 13:36: Specimen Source L radial, O2 % 2lpm, ABG pH 7.38, ABG pCO2 47.9 H, ABG pO2 61.4 L, ABG HCO3 27.4 H, ABG Total CO2 28.9 H, ABG O2 Saturation 91, ABG Base Excess 2.3, Cirilo Test Acceptable 08/15/18 16:19: Specimen Source R. radial, O2 % 100% nrb, ABG pH 7.21 L*, ABG pCO2 67.0 H, ABG pO2 184.1 H, ABG HCO3 26.1 H, ABG Total CO2 28.1 H, ABG O2 Saturation 99, ABG Base Excess -1.8, Cirilo Test Acceptable 08/15/18 18:12: Specimen Source R. radial, O2 % 40%, ABG pH 7.30 L, ABG pCO2 48.4 H, ABG pO2 70.5 L, ABG HCO3 23.4, ABG Total CO2 24.9, ABG O2 Saturation 93, ABG Base Excess -2.9 L, Cirilo Test Acceptable, Vent Rate 20, Tidal Volume Bipap 14/6 08/15/18 20:20: Troponin I < 0.02 08/16/18 02:05: Troponin I < 0.02 08/16/18 05:55: WBC 13.0 H, RBC 3.35 L, Hgb 9.7 L D, Hct 30.4 L, MCV 90.7, MCH 29.3, MCHC 32.3, RDW 14.7, Plt Count 244, MPV 7.7, Neut % (Auto) 84.1 H, Lymph % (Auto) 9.0 L, [place] % (Auto) 6.7, Eos % (Auto) 0.0 L, Baso % (Auto) 0.1, Neut # (Auto) 10.9 H, Lymph # (Auto) 1.2, [place] # (Auto) 0.9, Eos # (Auto) 0.0, Baso # (Auto) 0.0 08/16/18 05:55: Sodium 137, Potassium 3.6 D, Chloride 102, Carbon Dioxide 27, Anion Gap 11.6, BUN 10, Creatinine 0.73, Estimated Creat Clear 32, Estimated GFR 78, Est GFR ( Amer) 94 D, Glucose 131 H, Calcium 8.4 L, Triglycerides 46, Cholesterol 133 L, LDL Cholesterol 58, VLDL Cholesterol 9, HDL Cholesterol 66, Cholesterol/HDL Ratio 2.0 I & O for Last 24 hours: Intake & Output 08/13/18 08/14/18 08/15/18 08/16/18 11:59 11:59 11:59 11:59 Intake Total 966 / 966 Output Total 0 / 0 Balance 966 / 966 Weight 89 lb 3 oz Microbiology Reports for the Last 24 Hours: Microbiology 08/15/18 21:26 Sputum - Expectorated Sputum Gram Stain - Final - Constitutional no acute distress - *Routine Respiratory Exam Present: rhonchi, wheezes. Absent: rales - *Routine Cardiovascular Exam Present: RRR - *Routine Abdominal Exam Present: soft, normoactive bowel sounds. Absent: tenderness - *Routine Extremities Exam Absent: cyanosis, clubbing, edema Assessment and Plan (1) Acute exacerbation of chronic obstructive airways disease Current visit: Yes Status: Acute Category: Medical Code(s): J44.1 - Chronic obstructive pulmonary disease with (acute) exacerbation (2) Leukocytosis Current visit: Yes Status: Acute Category: Medical Code(s): D72.829 - Elevated white blood cell count, unspecified (3) Hypokalemia Current visit: Yes Status: Acute Category: Medical Code(s): E87.6 - Hypokalemia (4) Hypercapnia Current visit: Yes Status: Acute Category: Medical Code(s): R06.89 - Other abnormalities of breathing (5) Tobacco use disorder Current visit: Yes Status: Chronic Category: Medical Code(s): F17.200 - Nicotine dependence, unspecified, uncomplicated (6) Oxygen dependent Current visit: Yes Status: Chronic Category: Medical Code(s): Z99.81 - Dependence on supplemental oxygen (7) COPD (chronic obstructive pulmonary disease) Current visit: Yes Status: Chronic Category: Medical Code(s): J44.9 - Chronic obstructive pulmonary disease, unspecified - Assessment and plan all Dx Assessment and Plan for all problems:: WBC has improved and potassium has normalized. Patient will likely need a blood gas on nasal cannula to see if we can keep her off of BiPAP. Will discuss this with Dr. Isabel. We will also discuss moving her out of stepdown. <Clayton Isabel Ki - Last Filed: 08/16/18 09:06> Internal Medicine - PN: Subj Interval history: States she feels better but appears weak. Voice is hoarse. Of note, a recent outpt Echo showed severe aortic regurgitation. States she has not had much swelling at home lately. Exam Vital signs and Labs for Last 24 Hours: Temp Pulse Resp BP Pulse Ox 97.7 F 110 H 35 H 111/37 L 100 08/16/18 07:54 08/16/18 08:00 08/15/18 17:57 08/16/18 06:01 08/16/18 06:01 Laboratory Results - last 24 hr 08/15/18 13:33: WBC 15.0 H, RBC 4.02 L, Hgb 11.2 L, Hct 35.9 L, MCV 89.2, MCH 27.8, MCHC 31.2 L, RDW 14.7, Plt Count 247, MPV 7.6, Neut % (Auto) 86.3 H, Lymph % (Auto) 6.8 L, [place] % (Auto) 6.4, Eos % (Auto) 0.1, Baso % (Auto) 0.5, Neut # (Auto) 13.0 H, Lymph # (Auto) 1.0, [place] # (Auto) 1.0, Eos # (Auto) 0.0, Baso # (Auto) 0.1, Total Counted 100, Neutrophils % (Manual) 85 H, Band Neutrophils % 3.0, Lymphocytes % (Manual) 6 L, Monocytes % (Manual) 5, Eosinophils % (Manual) 1, Platelet Estimate Normal 08/15/18 13:33: Sodium 136, Potassium 2.8 L*, Chloride 96 L, Carbon Dioxide 29, Anion Gap 13.8, BUN 10, Creatinine 0.87, Estimated Creat Clear 31, Estimated GFR 64, Est GFR ( Amer) 77, Glucose 133 H, Calcium 9.0, Total Bilirubin 0.6, AST 25, ALT 26, Alkaline Phosphatase 142 H, Total Protein 7.2, Albumin 3.1 L, Globulin 4.1 H, Albumin/Globulin Ratio 0.8 L 08/15/18 13:33: Lactate 1.7 08/15/18 13:33: Total Creatine Kinase 38, CK-MB (CK-2) 1.5, CK-MB (CK-2) Rel Index 3.9, Troponin I < 0.02 08/15/18 13:36: Specimen Source L radial, O2 % 2lpm, ABG pH 7.38, ABG pCO2 47.9 H, ABG pO2 61.4 L, ABG HCO3 27.4 H, ABG Total CO2 28.9 H, ABG O2 Saturation 91, ABG Base Excess 2.3, Cirilo Test Acceptable 08/15/18 16:19: Specimen Source R. radial, O2 % 100% nrb, ABG pH 7.21 L*, ABG pCO2 67.0 H, ABG pO2 184.1 H, ABG HCO3 26.1 H, ABG Total CO2 28.1 H, ABG O2 Saturation 99, ABG Base Excess -1.8, Cirilo Test Acceptable 08/15/18 18:12: Specimen Source R. radial, O2 % 40%, ABG pH 7.30 L, ABG pCO2 48.4 H, ABG pO2 70.5 L, ABG HCO3 23.4, ABG Total CO2 24.9, ABG O2 Saturation 93, ABG Base Excess -2.9 L, Cirilo Test Acceptable, Vent Rate 20, Tidal Volume Bipap 14/6 08/15/18 20:20: Troponin I < 0.02 08/16/18 02:05: Troponin I < 0.02 08/16/18 05:55: WBC 13.0 H, RBC 3.35 L, Hgb 9.7 L D, Hct 30.4 L, MCV 90.7, MCH 29.3, MCHC 32.3, RDW 14.7, Plt Count 244, MPV 7.7, Neut % (Auto) 84.1 H, Lymph % (Auto) 9.0 L, [place] % (Auto) 6.7, Eos % (Auto) 0.0 L, Baso % (Auto) 0.1, Neut # (Auto) 10.9 H, Lymph # (Auto) 1.2, [place] # (Auto) 0.9, Eos # (Auto) 0.0, Baso # (Auto) 0.0 08/16/18 05:55: Sodium 137, Potassium 3.6 D, Chloride 102, Carbon Dioxide 27, Anion Gap 11.6, BUN 10, Creatinine 0.73, Estimated Creat Clear 32, Estimated GFR 78, Est GFR ( Amer) 94 D, Glucose 131 H, Calcium 8.4 L, Triglycerides 46, Cholesterol 133 L, LDL Cholesterol 58, VLDL Cholesterol 9, HDL Cholesterol 66, Cholesterol/HDL Ratio 2.0 I & O for Last 24 hours: Intake & Output 08/13/18 08/14/18 08/15/18 08/16/18 11:59 11:59 11:59 11:59 Intake Total 1326 / 1326 Output Total 0 / 0 Balance 1326 / 1326 Weight 89 lb 3 oz Microbiology Reports for the Last 24 Hours: Microbiology 08/15/18 21:26 Sputum - Expectorated Sputum Gram Stain - Final Assessment and Plan (1) Hypercapnic respiratory failure Current visit: Yes Status: Acute Category: Medical Code(s): J96.92 - Respiratory failure, unspecified with hypercapnia (2) Acute exacerbation of chronic obstructive airways disease Current visit: Yes Status: Acute Category: Medical Code(s): J44.1 - Chronic obstructive pulmonary disease with (acute) exacerbation (3) Leukocytosis Current visit: Yes Status: Acute Category: Medical Code(s): D72.829 - Elevated white blood cell count, unspecified (4) Hypokalemia Current visit: Yes Status: Acute Category: Medical Code(s): E87.6 - Hypokalemia (5) Tobacco use disorder Current visit: Yes Status: Chronic Category: Medical Code(s): F17.200 - Nicotine dependence, unspecified, uncomplicated (6) Oxygen dependent Current visit: Yes Status: Chronic Category: Medical Code(s): Z99.81 - Dependence on supplemental oxygen (7) COPD (chronic obstructive pulmonary disease) Current visit: Yes Status: Chronic Category: Medical Code(s): J44.9 - Chronic obstructive pulmonary disease, unspecified (8) Aortic regurgitation Current visit: Yes Status: Acute Category: Medical Code(s): I35.1 - Nonrheumatic aortic (valve) insufficiency - Assessment and plan all Dx Assessment and Plan for all problems:: Patient seen and examined. She has been off BiPAP for about an hour and tolerating OK with sats in mid 90's. She wants to go home but is clearly not well enough. Still awaiting sputum C&S. Will repeat CXR after hydration over night. Check PCR respiratory panel. Resume steroids.
--- NOTE | 2018-08-16 08:44 | Pharmacy Consult Notes ---
[facility] Pharmacy VTE Monitoring - Patient Demographics Admission date: 08/16/18 Report Date: 08/16/18 Time: 08:44 Allergies/Adverse Reactions: Patient Allergies doxycycline [DOXYCYCLINE] Allergy (Severe, Verified 08/15/18 14:30) I-HIVES, ITCHING, NAUSEA/VOMITING Sulfa (Sulfonamide Antibiotics) Allergy (Unknown, Verified 08/15/18 14:30) Height: 1.5 m Weight: 40.455 kg Patient Problems: Current Active Problems Acute exacerbation of chronic obstructive airways disease (Acute) Tobacco use disorder (Chronic) Hypokalemia (Acute) Shortness of breath (Acute) URI (upper respiratory infection) (Acute) Leukocytosis (Acute) Hypercapnia (Acute) Oxygen dependent (Chronic) COPD (chronic obstructive pulmonary disease) (Chronic) - VTE Risk Labs: VTE Related Lab Results Hgb 9.7 g/dL (12.2-16.2) L D 08/16/18 05:55 Hct 30.4 % (37.0-47.0) L 08/16/18 05:55 Plt Count 244 K/mm3 (142-424) 08/16/18 05:55 BUN 10 mg/dL (7-18) 08/16/18 05:55 Creatinine 0.73 mg/dL (0.55-1.02) 08/16/18 05:55 Estimated Creat Clear 32 mL/min (50-200) 08/16/18 05:55 Was VTE Risk Assessment Performed: Yes VTE Score: 4 VTE Risk Level: Low Risk Clinical Trial Participant: No - Prophylaxis VTE Prophylaxis Ordered?: Yes Types of VTE Prophylaxis: TEDS Knee High Location of Applied Device: Bilateral Lower Extremeties
[2018-08-16 09:26] LABS: Coronavirus 229E Not Detected (NotDetected); Coronavirus NL63 Not Detected (NotDetected); Coronavirus OC43 Not Detected (NotDetected); Coronovirus HKU1,PCR Not Detected (NotDetected)
[2018-08-16 09:38] LABS: ABG Base Excess 0.4 mmol/L (-2.4-2.3); ABG HCO3 26.4 mmhg (22.0-26.0); ABG Oxygen Saturation 91 % (90-100); ABG PH 7.32 mmol/L (7.35-7.45); ABG PO2 62.8 mmhg (80-100)
[2018-08-16 09:39] LABS: Oxygen 2.5 LPM %
[2018-08-16 09:40] LABS: ABG PCO2 51.9 mmhg (35.0-45.0)
[2018-08-17 06:17] LABS: Eosinophils % 0.1 % (0.1-12.0); Hemoglobin 8.8 g/dL (12.2-16.2); Lymphocytes # 0.5 K/mm3 (0.7-4.5); Lymphocytes % 6.1 % (10-50); Mean Corpuscular HGB Conc 30.3 g/dL (31.8-35.4); Mean Corpuscular Hemoglobin 28.1 pg (27.0-31.2); Mean Corpuscular Volume 92.7 fl (81-99); Mean Platelet Volume 7.6 fl (7.4-10.4); Monocytes # 0.4 K/mm3 (0.1-1.0); Monocytes % 4.5 % (1.7-9.3); Neutrophils # 7.6 K/mm3 (1.8-7.8); Neutrophils % 89.4 % (37.0-80.0); Platelet Count 209 K/mm3 (142-424); Red Blood Count 3.13 M/mm3 (4.20-5.40); Red Cell Distribution Width 14.6 % (11.5-17.5); White Blood Count 8.5 K/mm3 (4.8-10.8)
[2018-08-17 06:38] LABS: Anion Gap 15.6 mEq/L (5-15); Calcium 8.4 mg/dL (8.5-10.1); Potassium 4.6 mmoL/L (3.5-5.1)
[2018-08-17 07:26] LABS: Lymphocytes % 11 % (10-50); Monocytes % 2 % (2-9); Neutrophils % 87 % (42-76); Total Cells Counted 100
[2018-08-17 07:28] LABS: RBC Morphology Normal
--- NOTE | 2018-08-17 08:57 | Progress Note ---
Internal Medicine - PN: Subj *Date: 08/17/18 *Time: 08:54 Interval history: Feels a little better. Slept better. Still weak when up. Less SOA. Complains of some RLQ pain off and on 5-6 days. No change in bowels of kidneys. Exam Vital signs and Labs for Last 24 Hours: Temp Pulse Resp BP Pulse Ox 98.2 F 109 H 23 118/56 L 92 L 08/17/18 08:00 08/17/18 08:00 08/17/18 08:00 08/17/18 08:00 08/17/18 08:00 Laboratory Results - last 24 hr 08/16/18 09:10: Chlamy pneumoniae PCR Not detected, Adenovirus (PCR) Not detected, B.parapertussis DNA PCR Not detected, Coronavirus OC43 (PCR) Not detected, Coronavirus HKU1 (PCR) Not detected, Coronavirus 229E (PCR) Not detected, Coronavirus NL63 (PCR) Not detected, Human Metapneumovir PCR Not detected, Influenza A (H1) PCR Not detected, Influ A (H1N1/09) PCR Not detected, Influenza A (H3) PCR Not detected, Influenza Type A (PCR) Not detected, Influenza Type B (PCR) Not detected, M. pneumoniae (PCR) Not detected, Parainfluenza 1 (PCR) Not detected, Parainfluenza 2 (PCR) Not detected, Parainfluenza 3 (PCR) Not detected, Parainfluenza 4 (PCR) Not detected, RSV (PCR) Not detected, Entero/Rhino (PCR) Not detected 08/16/18 09:36: Specimen Source L brachial, O2 % 2.5 lpm, ABG pH 7.32 L, ABG pCO2 51.9 H, ABG pO2 62.8 L, ABG HCO3 26.4 H, ABG Total CO2 28.0 H, ABG O2 Saturation 91, ABG Base Excess 0.4 08/17/18 06:05: WBC 8.5 D, RBC 3.13 L, Hgb 8.8 L, Hct 29.0 L, MCV 92.7, MCH 28.1, MCHC 30.3 L, RDW 14.6, Plt Count 209, MPV 7.6, Neut % (Auto) 89.4 H, Lymph % (Auto) 6.1 L, [place] % (Auto) 4.5, Eos % (Auto) 0.1, Baso % (Auto) 0.0 L, Neut # (Auto) 7.6, Lymph # (Auto) 0.5 L, [place] # (Auto) 0.4, Eos # (Auto) 0.0, Baso # (Auto) 0.0, Total Counted 100, Neutrophils % (Manual) 87 H, Lymphocytes % (Manual) 11, Monocytes % (Manual) 2, Platelet Estimate Normal, RBC Morphology Normal 08/17/18 06:05: Sodium 139, Potassium 4.6 D, Chloride 103, Carbon Dioxide 25, Anion Gap 15.6 H, BUN 11, Creatinine 0.63, Estimated Creat Clear 32, Estimated GFR 92, Est GFR ( Amer) 112, Glucose 136 H, Calcium 8.4 L I & O for Last 24 hours: Intake & Output 08/14/18 08/15/18 08/16/18 08/17/18 11:59 11:59 11:59 11:59 Intake Total 1326 / 1326 2319 / 2319 Output Total 0 / 0 Balance 1326 / 1326 2319 / 2319 Weight 89 lb 3 oz Microbiology Reports for the Last 24 Hours: Microbiology 08/15/18 21:26 Sputum - Expectorated Sputum Gram Stain - Final 08/15/18 21:26 Sputum - Expectorated Sputum Sputum Culture - Preliminary Gram Positive Cocci - Constitutional Comments: dyspneic when talking. Voice is stronger but still hoarse. - *Routine Respiratory Exam Comments: generally diminished BS with bilateral rhonchi and wheezes. - *Routine Cardiovascular Exam Present: RRR - *Routine Abdominal Exam Comments: mild right mid abdominal tenderness. No rebound or guarding. - *Routine Extremities Exam Absent: edema Assessment and Plan (1) Hypercapnic respiratory failure Current visit: Yes Status: Acute Category: Medical Code(s): J96.92 - Respiratory failure, unspecified with hypercapnia (2) Acute exacerbation of chronic obstructive airways disease Current visit: Yes Status: Acute Category: Medical Code(s): J44.1 - Chronic obstructive pulmonary disease with (acute) exacerbation (3) Leukocytosis Current visit: Yes Status: Acute Category: Medical Code(s): D72.829 - Elevated white blood cell count, unspecified (4) Hypokalemia Current visit: Yes Status: Acute Category: Medical Code(s): E87.6 - Hypok alemia (5) Tobacco use disorder Current visit: Yes Status: Chronic Category: Medical Code(s): F17.200 - Nicotine dependence, unspecified, uncomplicated (6) Oxygen dependent Current visit: Yes Status: Chronic Category: Medical Code(s): Z99.81 - Dependence on supplemental oxygen (7) COPD (chronic obstructive pulmonary disease) Current visit: Yes Status: Chronic Category: Medical Code(s): J44.9 - Chronic obstructive pulmonary disease, unspecified (8) Aortic regurgitation Current visit: Yes Status: Acute Category: Medical Code(s): I35.1 - Nonrheumatic aortic (valve) insufficiency - Assessment and plan all Dx Assessment and Plan for all problems:: Clinically looks and feels better. WBC has normalized. K+ is normal. Sputum with Gm (+) cocci. Will continue antibiotics and steroids. Encouraged OOB activity and diet.
[2018-08-17 09:12] LABS: Microscopic, Urine URINE MICROSCOPIC (MICROSCOPIC)
[2018-08-17 09:13] LABS: Appearance,Urine CLEAR (Clear); Bilirubin,Urine Negative (Negative); Blood, Urine TRACE-L (Negative); Color,Urine YELLOW (Yellow); Glucose,Urine (UA) Negative (Negative); Ketones,Urine Negative (Negative); Leukocyte Esterase,Urine Negative (Negative); Protein,Urine Negative (Negative); Specific Gravity, Urine 1.025 (1.005-1.030); Urobilinogen,Urine 0.2 EU/dl (0.2)
[2018-08-17 09:23] LABS: Bacteria,Urine Trace /lpf; Mucus,Urine 1+ /lpf; Squamous Epithelial Cell,Urine Occasional #/hpf (0-5); WBC,Urine Occasional #/hpf (0-3)
[2018-08-18 06:44] LABS: Basophils % 0.1 % (0.1-2.0); Eosinophils % 0.2 % (0.1-12.0); Hemoglobin 9.1 g/dL (12.2-16.2); Lymphocytes # 0.6 K/mm3 (0.7-4.5); Lymphocytes % 6.2 % (10-50); Mean Corpuscular HGB Conc 31.3 g/dL (31.8-35.4); Mean Corpuscular Hemoglobin 28.5 pg (27.0-31.2); Mean Platelet Volume 7.4 fl (7.4-10.4); Monocytes # 0.4 K/mm3 (0.1-1.0); Monocytes % 4.2 % (1.7-9.3); Neutrophils # 8.2 K/mm3 (1.8-7.8); Neutrophils % 89.4 % (37.0-80.0); Platelet Count 264 K/mm3 (142-424); Red Cell Distribution Width 14.9 % (11.5-17.5); White Blood Count 9.2 K/mm3 (4.8-10.8)
[2018-08-18 06:46] LABS: Hematocrit 29.1 % (37.0-47.0)
[2018-08-18 06:48] LABS: Anion Gap 10.6 mEq/L (5-15); Calcium 8.7 mg/dL (8.5-10.1); Potassium 4.6 mmoL/L (3.5-5.1)
[2018-08-18 07:14] LABS: Hypochromasia 1+; Lymphocytes % 11 % (10-50); Neutrophils % 87 % (42-76); Nucleated Red Blood Cells 1; Polychromasia 1+; Total Cells Counted 100
--- NOTE | 2018-08-18 16:43 | Progress Note ---
Internal Medicine - PN: Ady *Date: 08/18/18 *Time: 16:40 Interval history: She remains clinically stable. She is still hoarse. She is in no acute distress. Vital signs and lab work are reviewed. Her oxygen saturations are running 95% range. Exam Vital signs and Labs for Last 24 Hours: Temp Pulse Resp BP Pulse Ox 98.4 F 79 17 130/53 L 95 08/18/18 15:30 08/18/18 15:30 08/18/18 15:30 08/18/18 15:30 08/18/18 15:30 Laboratory Results - last 24 hr 08/18/18 06:00: WBC 9.2, RBC 3.20 L, Hgb 9.1 L, Hct 29.1 L, MCV 91.0, MCH 28.5, MCHC 31.3 L, RDW 14.9, Plt Count 264 D, MPV 7.4, Neut % (Auto) 89.4 H, Lymph % (Auto) 6.2 L, [place] % (Auto) 4.2, Eos % (Auto) 0.2, Baso % (Auto) 0.1, Neut # (Auto) 8.2 H, Lymph # (Auto) 0.6 L, [place] # (Auto) 0.4, Eos # (Auto) 0.0, Baso # (Auto) 0.0, Total Counted 100, Neutrophils % (Manual) 87 H, Band Neutrophils % 2.0, Lymphocytes % (Manual) 11, Nucleated RBCs 1, Platelet Estimate Normal, Polychromasia 1+, Hypochromasia 1+ 08/18/18 06:00: Sodium 136, Potassium 4.6, Chloride 100, Carbon Dioxide 30, Anion Gap 10.6, BUN 15 D, Creatinine 0.67, Estimated Creat Clear 32, Estimated GFR 86, Est GFR ( Amer) 104, Glucose 130 H, Calcium 8.7 I & O for Last 24 hours: Intake & Output 08/16/18 08/17/18 08/18/18 08/19/18 11:59 11:59 11:59 11:59 Intake Total 1326 / 1326 2319 / 2319 770 / 770 240 / 240 Output Total 0 / 0 150 / 150 1650 / 1650 1100 / 1100 Balance 1326 / 1326 2169 / 2169 -880 / -880 -860 / -860 Weight 89 lb 3 oz Microbiology Reports for the Last 24 Hours: Microbiology 08/15/18 21:26 Sputum - Expectorated Sputum Gram Stain - Final 08/15/18 21:26 Sputum - Expectorated Sputum Sputum Culture - Final Kocuria Species 08/15/18 13:28 Blood Blood Culture - Preliminary NO GROWTH AFTER 48 HOURS 08/15/18 13:28 Blood Blood Culture - Preliminary NO GROWTH AFTER 48 HOURS - Constitutional no acute distress Comments: Small and frail appearing. - *Routine HEENT Exam ENT: Present: mucous membranes moist Comments: There is no inflammation of the throat. She has some mucus present. It is noted that the uvula is absent secondary to surgical procedure for sleep apnea. - *Routine Respiratory Exam Present: decreased breath sounds, CTA bilaterally. Absent: wheezes - *Routine Cardiovascular Exam Present: RRR - *Routine Abdominal Exam Present: soft. Absent: tenderness - *Routine Extremities Exam Absent: edema - *Routine Neurological Exam Present: alert, oriented X3 Assessment and Plan (1) Hypercapnic respiratory failure Current visit: Yes Status: Acute Category: Medical Code(s): J96.92 - Respiratory failure, unspecified with hypercapnia (2) Acute exacerbation of chronic obstructive airways disease Current visit: Yes Status: Acute Category: Medical Code(s): J44.1 - Chronic obstructive pulmonary disease with (acute) exacerbation (3) Leukocytosis Current visit: Yes Status: Acute Category: Medical Code(s): D72.829 - Elevated white blood cell count, unspecified (4) Hypokalemia Current visit: Yes Status: Acute Category: Medical Code(s): E87.6 - Hypokalemia (5) Tobacco use disorder Current visit: Yes Status: Chronic Category: Medical Code(s): F17.200 - Nicotine dependence, unspecified, uncomplicated (6) Oxygen dependent Current visit: Yes Status: Chronic Category: Medical Code(s): Z99.81 - Dependence on supplemental oxygen (7) COPD (chronic obstructive pulmonary disease) Current visit: Yes Status: Chronic Category: Medical Code(s): J44.9 - Chronic obstructive pulmonary disease, unspecified (8) Aortic regurgitation Current visit: Yes Status: Acute Category: Medical Code(s): I35.1 - Nonrheumatic aortic (valve) insufficiency - Assessment and plan all Dx Assessment and Plan for all problems:: To continue present regimen. We discussed possible sleep apnea retesting after discharge. She could benefit from CPAP.
--- NOTE | 2018-08-19 08:05 | Progress Note ---
<Kimmie Romero - Last Filed: 08/19/18 08:02> Internal Medicine - PN: Subj *Date: 08/19/18 *Time: 08:02 Interval history: Patient feels she is doing better. She did sleep some last night. She is eating some. Bowels are moving. She is voiding without difficulty. She is somewhat short of breath although basically it is at baseline. She has a productive cough at times. She ambulated in the room and in the gilmore yesterday. Exam Vital signs and Labs for Last 24 Hours: Temp Pulse Resp BP Pulse Ox 98.4 F 88 18 124/64 99 08/19/18 04:00 08/19/18 06:33 08/19/18 04:00 08/19/18 04:00 08/19/18 06:33 I & O for Last 24 hours: Intake & Output 08/16/18 08/17/18 08/18/18 08/19/18 11:59 11:59 11:59 11:59 Intake Total 1326 / 1326 2319 / 2319 770 / 770 480 / 480 Output Total 0 / 0 150 / 150 1650 / 1650 2350 / 2350 Balance 1326 / 1326 2169 / 2169 -880 / -880 -1870 / -1870 Weight 89 lb 3 oz Microbiology Reports for the Last 24 Hours: Microbiology 08/15/18 21:26 Sputum - Expectorated Sputum Gram Stain - Final 08/15/18 21:26 Sputum - Expectorated Sputum Sputum Culture - Final Kocuria Species - Constitutional no acute distress Comments: Sitting on the bedside eating her breakfast - *Routine Respiratory Exam Comments: Diminished breath sounds posteriorly - *Routine Cardiovascular Exam Present: RRR - *Routine Abdominal Exam Present: soft, normoactive bowel sounds. Absent: tenderness, distended - *Routine Extremities Exam Absent: edema, calf tenderness - *Routine Neurological Exam Present: alert, oriented X3 Assessment and Plan (1) Hypercapnic respiratory failure Current visit: Yes Status: Acute Category: Medical Code(s): J96.92 - Respiratory failure, unspecified with hypercapnia (2) Acute exacerbation of chronic obstructive airways disease Current visit: Yes Status: Acute Category: Medical Code(s): J44.1 - Chronic obstructive pulmonary disease with (acute) exacerbation (3) Leukocytosis Current visit: Yes Status: Acute Category: Medical Code(s): D72.829 - Elevated white blood cell count, unspecified (4) Hypokalemia Current visit: Yes Status: Acute Category: Medical Code(s): E87.6 - Hypokalemia (5) Tobacco use disorder Current visit: Yes Status: Chronic Category: Medical Code(s): F17.200 - Nicotine dependence, unspecified, uncomplicated (6) Oxygen dependent Current visit: Yes Status: Chronic Category: Medical Code(s): Z99.81 - Dependence on supplemental oxygen (7) COPD (chronic obstructive pulmonary disease) Current visit: Yes Status: Chronic Category: Medical Code(s): J44.9 - Chronic obstructive pulmonary disease, unspecified (8) Aortic regurgitation Current visit: Yes Status: Acute Category: Medical Code(s): I35.1 - N onrheumatic aortic (valve) insufficiency - Assessment and plan all Dx Assessment and Plan for all problems:: Continue current care. Possibly home soon. <Clayton Isabel - Last Filed: 08/19/18 08:15> Exam Vital signs and Labs for Last 24 Hours: Temp Pulse Resp BP Pulse Ox 98.7 F 100 H 18 121/62 95 08/19/18 08:00 08/19/18 08:00 08/19/18 08:00 08/19/18 08:00 08/19/18 08:00 I & O for Last 24 hours: Intake & Output 08/16/18 08/17/18 08/18/18 08/19/18 11:59 11:59 11:59 11:59 Intake Total 1326 / 1326 2319 / 2319 770 / 770 720 / 720 Output Total 0 / 0 150 / 150 1650 / 1650 2350 / 2350 Balance 1326 / 1326 2169 / 2169 -880 / -880 -1630 / -1630 Weight 89 lb 3 oz Microbiology Reports for the Last 24 Hours: Microbiology 08/15/18 21:26 Sputum - Expectorated Sputum Gram Stain - Final 08/15/18 21:26 Sputum - Expectorated Sputum Sputum Culture - Final Kocuria Species Assessment and Plan (1) Hypercapnic respiratory failure Current visit: Yes Status: Acute Category: Medical Code(s): J96.92 - Respiratory failure, unspecified with hypercapnia (2) Acute exacerbation of chronic obstructive airways disease Current visit: Yes Status: Acute Category: Medical Code(s): J44.1 - Chronic obstructive pulmonary disease with (acute) exacerbation (3) Acute bronchitis Current visit: Yes Status: Acute Category: Medical Code(s): J20.9 - Acute bronchitis, unspecified (4) Leukocytosis Current visit: Yes Status: Acute Category: Medical Code(s): D72.829 - Elevated white blood cell count, unspecified (5) Hypokalemia Current visit: Yes Status: Acute Category: Medical Code(s): E87.6 - Hypokalemia (6) Tobacco use disorder Current visit: Yes Status: Chronic Category: Medical Code(s): F17.200 - Nicotine dependence, unspecified, uncomplicated (7) Oxygen dependent Current visit: Yes Status: Chronic Category: Medical Code(s): Z99.81 - De pendence on supplemental oxygen (8) COPD (chronic obstructive pulmonary disease) Current visit: Yes Status: Chronic Category: Medical Code(s): J44.9 - Chronic obstructive pulmonary disease, unspecified (9) Aortic regurgitation Current visit: Yes Status: Acute Category: Medical Code(s): I35.1 - Nonrheumatic aortic (valve) insufficiency - Assessment and plan all Dx Assessment and Plan for all problems:: Patient seen and examined. She is tolerating activity. Appetite is improved. Lungs are clear of wheezes. SHe is stable to be discharged home and f/u in 4 days.
--- NOTE | 2018-08-19 09:16 | Progress Note ---
Internal Medicine - PN: Subj *Date: 08/19/18 *Time: 09:15 Exam Vital signs and Labs for Last 24 Hours: Temp Pulse Resp BP Pulse Ox 98.7 F 100 H 18 121/62 95 08/19/18 08:00 08/19/18 08:00 08/19/18 08:00 08/19/18 08:00 08/19/18 08:00 I & O for Last 24 hours: Intake & Output 08/16/18 08/17/18 08/18/18 08/19/18 23:59 23:59 23:59 23:59 Intake Total 2010 2164 / 2164 720 / 720 240 / 240 Output Total 1400 / 1400 1750 / 1750 1000 / 1000 Balance 2010 764 / 764 -1030 / -1030 -760 / -760 Weight 40.455 kg Microbiology Reports for the Last 24 Hours: Microbiology 08/15/18 21:26 Sputum - Expectorated Sputum Gram Stain - Final 08/15/18 21:26 Sputum - Expectorated Sputum Sputum Culture - Final Kocuria Species Assessment and Plan (1) Hypercapnic respiratory failure Status: Acute Category: Medical Code(s): J96.92 - Respiratory failure, unspecified with hypercapnia (2) Acute exacerbation of chronic obstructive airways disease Status: Acute Category: Medical Code(s): J44.1 - Chronic obstructive pulmonary disease with (acute) exacerbation (3) Acute bronchitis Status: Acute Category: Medical Code(s): J20.9 - Acute bronchitis, unspecified (4) Leukocytosis Status: Acute Category: Medical Code(s): D72.829 - Elevated white blood cell count, unspecified (5) Hypokalemia Status: Acute Category: Medical Code(s): E87.6 - Hypokalemia (6) Tobacco use disorder Status: Chronic Category: Medical Code(s): F17.200 - Nicotine dependence, unspecified, uncomplicated (7) Oxygen dependent Status: Chronic Category: Medical Code(s): Z99.81 - Dependence on supplemental oxygen (8) COPD (chronic obstructive pulmonary disease) Status: Chronic Category: Medical Code(s): J44.9 - Chronic obstructive pulmonary disease, unspecified (9) Aortic regurgitation Status: Acute Category: Medical Code(s): I35.1 - Nonrheumatic aortic (valve) insufficiency The patient's infection will respond to the chosen ABx?: Yes Is the patient receiving the right drug, dose, and route?: Yes Could a more targeted ABx be ordered?: No (HOME ON CEFTIN)
--- NOTE | 2018-08-19 23:15 | Discharge Summary ---
General - General Admission date:: 08/15/18 <MaameClayton ba - 08/23/18 12:47> 08/15/18 <Cadence Hooper - 08/19/18 23:15> Discharge date: 08/19/18 <RufusCadence - 08/19/18 23:15> HPI HPI: Ms. Mahoney is a 73yo female with a history of oxygen dependent COPD. She has been staying with her daughter for the past 10 days since her daughter's . She did not have her oxygen or potassium while at her home. She normally sleeps with oxygen every night and uses it as needed during the day. She began getting a sore throat and cough last night. She then began getting SOA. She placed oxygen on this am and took a few neb treatments. She did not feel better and called to make an appt at [facility]. She progressively got worse and went to the [facility] instead. Her oxygen was in the low 80's, so they recommended she go to the ER. Her first blood gas in the ER showed a pO2 of 61.4 and a pCO2 of 47.9. It appears she was initially started on oxygen at 2L /min via NC. After the blood gas, she was started on a 100% Nonrebreather. Her next blood gas showed a pO2 of 184.1 and a pCO2 of 67. She was then placed on BIPAP. Her potassium was low and was replaced. Her CXR showed chronic changes. Her WBC was elevated. She was admitted for further evaluation and treatment of her COPD exacerbation. <Cadence Hooper - 08/19/18 23:15> Hospital Course Hospital Course: The patient's ABG's improved on the BIPAP. She was started on zithromax, rocephin, IVF's with potassium, duonebs, and some of her home medications. She was given a large dose of solumedrol initially and then continued on steroids. She was able to be weaned off her BIPAP and her oxygen saturation was 96% on 2-1/2 L. Her WBC improved and her potassium normalized. Of note, a recent outpt Echo showed severe aortic regurgitation. She does have an appt scheduled with her therapy manager. She had a repeat CXR after hydration which still showed no pneumonia. A PCR respiratory panel was negative. Her sputum cx was positive for Kocuria rosea. She did improve and was able to ambulate in the room and in the gilmore. She was stable to be discharged home and will f/u in 4 days in the office of A. <Cadence Hooper - 08/19/18 23:15> Objective Vital signs: Temp Pulse Resp BP Pulse Ox 98.7 F 100 H 18 121/62 95 08/19/18 08:00 08/19/18 08:00 08/19/18 08:00 08/19/18 08:00 08/19/18 08:00 <Clayton Isabel - 08/23/18 12:47> Temp Pulse Resp BP Pulse Ox 98.7 F 100 H 18 121/62 95 08/19/18 08:00 08/19/18 08:00 08/19/18 08:00 08/19/18 08:00 08/19/18 08:00 <Cadence Hooper - 08/19/18 23:15> Narrative: - Constitutional Comments: Does not appear to feel well, BIPAP in place - *Routine HEENT Exam Head: Present: normocephalic Eye: Present: EOMI, PERRL ENT: Present: mucous membranes dry - *Routine Neck Exam Present: supple. Absent: lymphadenopathy - *Routine Respiratory Exam Present: wheezes (bilaterally), diminished air movement - *Routine Cardiovascular Exam Present: tachycardia - *Routine Abdominal Exam Present: soft, normoactive bowel sounds. Absent: tenderness - *Routine Extremities Exam Absent: cyanosis, clubbing, edema - *Routine Skin Exam Present: warm. Absent: rash - *Routine Neurological Exam Present: alert, oriented X3 <Cadence Hooper - 08/19/18 23:15> Results Labs on day of discharge: Preliminary micro results at discharge 08/15/18 13:28 Blood Culture - Preliminary Blood NO GROWTH AFTER 48 HOURS 08/15/18 13:28 Blood Culture - Preliminary Blood NO GROWTH AFTER 48 HOURS <Cadence Hooper - 08/19/18 23:15> DS: Diagnosis - Discharge Diagnosis (1) Hypercapnic respiratory failure Status: Acute (2) Acute exacerbation of chronic obstructive airways disease Status: Acute (3) Acute bronchitis Status: Acute (4) Leukocytosis Status: Acute (5) Hypokalemia Status: Acute (6) Tobacco use disorder Status: Chronic (7) Oxygen dependent Status: Chronic (8) COPD (chronic obstructive pulmonary disease) Status: Chronic (9) Aortic regurgitation Status: Acute <Cadence Hooper - 08/19/18 23:05> (1) Hypercapnic respiratory failure Status: Acute (2) Acute exacerbation of chronic obstructive airways disease Status: Acute (3) Acute bronchitis Status: Acute (4) Leukocytosis Status: Acute (5) Hypokalemia Status: Acute (6) Tobacco use disorder Status: Chronic (7) Oxygen dependent Status: Chronic (8) COPD (chronic obstructive pulmonary disease) Status: Chronic (9) Aortic regurgitation Status: Acute <Clayton Isabel - 08/23/18 12:47> Discharge Plan - Patient Discharge Instructions ACTIVITY: Continue current activity <Cadence Hooper - 08/19/18 23:15> DIET: continue same diet <Cadence Hooper - 08/19/18 23:15> Patient Instructions: Chronic Obstructive Pulmonary Disease, DI for Hypokalemia, How to Quit Smoking <Clayton Isabel - 08/23/18 12:47> Forms: <Clayton Isabel - 08/23/18 12:47> - Follow up Plan Follow up with: Clayton Isabel MD [Primary Care Provider] - 08/23/18 <Clayton Isabel - 08/23/18 12:47> Disposition: Home, Self-Care <Clayton Isabel - 08/23/18 12:47> Home Medications: Home Medications Medication Instructions Recorded Confirmed Type RX: Albuterol Sulfate [Albuterol 1 - 2 puffs IH Q4-6H PRN 08/15/18 08/15/18 History HFA Inhaler] RX: Duloxetine HCl [Cymbalta] 60 mg PO DAILY 08/15/18 08/15/18 History RX: Fluticasone/Vilanterol [Breo 1 each IH DAILY 08/15/18 08/15/18 History Ellipta 100-25 Mcg INH] RX: Furosemide [Furosemide 40MG 40 mg PO DAILY 08/15/18 08/15/18 History tAB] RX: Magnesium Amino Acid Chelate 100 mg PO DAILY 08/15/18 08/15/18 History [Magnesium] RX: Montelukast Sodium [Singulair 10 mg PO PM 08/15/18 08/16/18 History 10mg tablet] RX: Pregabalin [Lyrica 100mg Cap] 100 mg PO DAILY 08/15/18 08/15/18 History RX: Primidone [Mysoline] 50 mg PO TID 08/15/18 08/15/18 History RX: Umeclidinium [place] [Incruse 1 puff IH DAILY 08/15/18 08/16/18 History Ellipta] RX: Omeprazole [Omeprazole 20mg 20 mg PO DAILY 08/16/18 08/16/18 History Capsule] <Clayton Isabel - 08/23/18 12:47> Prescriptions/Medication Reconciliation: New predniSONE [Prednisone 5mg Tab Dose-Pack] 5 mg PO UD DOSE PK #1 pack RX: cefUROXime axetil [Ceftin 250mg Tablet] 250 mg PO BID #14 tab Continue RX: Albuterol Sulfate [Albuterol HFA Inhaler] 1 - 2 puffs IH Q4-6H PRN PRN Reason: Shortness Of Breath Or Wheezing RX: Primidone [Mysoline] 50 mg PO TID RX: Pregabalin [Lyrica 100mg Cap] 100 mg PO DAILY RX: Fluticasone/Vilanterol [Breo Ellipta 100-25 Mcg INH] 1 each IH DAILY RX: Umeclidinium [place] [Incruse Ellipta] 1 puff IH DAILY RX: Furosemide [Furosemide 40MG tAB] 40 mg PO DAILY RX: Montelukast Sodium [Singulair 10mg tablet] 10 mg PO PM RX: Magnesium Amino Acid Chelate [Magnesium] 100 mg PO DAILY RX: Duloxetine HCl [Cymbalta] 60 mg PO DAILY RX: Omeprazole [Omeprazole 20mg Capsule] 20 mg PO DAILY Changed RX: Potassium Chloride [K-Tab ER 10 mEq] 10 meq PO BID #0 <Clayton Isabel - 08/23/18 12:47> - Additional Information Additional Information: Concur with plan for discharge. <Clayton Isabel - 08/23/18 12:47>
== END 2018-08-19 09:01 | disposition home or self-care (01) ==
LOC: 2ND 13:05 → ER 13:05 → OBSVTOIN 17:07 → 2ND 17:51
PROVIDERS: ADMIT Family Medicine; ATTEND Family Medicine
CPT/HCPCS: 36415; 71010; 71020; 71045; 71046; 80048; 80053; 80061; 81001; 82550; 82553; 82803; 83605; 84484; 85007; 85025; 87040; 87070; 87077; 87205; 87486; 87581; 87633; 87798; 93005; 94640; 94660; 94761; 96365; 96367; 96375; 99283; J0456; J2405

== ENCOUNTER → 2018-09-13 15:02 | Outpatient (CLI) | payer MEDICARE, SELFPAY ==
--- NOTE | 2018-09-13 15:09 | XR_ITS ---
EXAM: XR lumbar spine min 4V HISTORY: ITS.REASON: LOW BACK PAIN, R/O COMPRESSION FX ORDERING PHYSICIAN: Clayton Isabel MD PATIENT AGE: 73 years FINDINGS: There is normal alignment. There has been prior kyphoplasty at the T12 level with some extravasation of the methylmethacrylate into the superior endplate and paravertebral region. There is mild wedging of L1 anteriorly not significant changed from 02/09/2016. The other vertebral bodies have an unremarkable appearance. No acute fracture or dislocation. There is incidental note made of sclerosis of the right femoral head which may be due to developing avascular necrosis. Generalized vascular calcification noted. IMPRESSION: 1. Chronic wedging of L1, prior kyphoplasty at T12. 2. 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
== END ==
PROVIDERS: PCP Family Medicine; Visit Provider Family Medicine
DX: M54.5 Low back pain (principal)
CPT/HCPCS: 72110

== ENCOUNTER 2018-10-07 22:14 | Inpatient (IN) ==
[2018-10-07 22:36] LABS: ABG HCO3 30.9 mmhg (22.0-26.0); ABG Oxygen Saturation 95 % (90-100); ABG PCO2 44.7 mmhg (35.0-45.0); ABG PH 7.46 mmol/L (7.35-7.45); ABG PO2 75.3 mmhg (80-100); ABG TCO2 32.2 mmhg (23-27)
[2018-10-07 22:39] LABS: Allen's Test Acceptable
[2018-10-07 22:43] LABS: Basophils % 0.3 % (0.1-2.0); Eosinophils # 0.1 K/mm3 (0.0-0.4); Eosinophils % 1.4 % (0.1-12.0); Hematocrit 30.7 % (37.0-47.0); Hemoglobin 10.7 g/dL (12.2-16.2); Lymphocytes # 1.7 K/mm3 (0.7-4.5); Lymphocytes % 18.2 % (10-50); Mean Corpuscular Hemoglobin 29.3 pg (27.0-31.2); Mean Corpuscular Volume 83.7 fl (81-99); Mean Platelet Volume 7.6 fl (7.4-10.4); Monocytes # 0.7 K/mm3 (0.1-1.0); Monocytes % 7.7 % (1.7-9.3); Neutrophils # 6.6 K/mm3 (1.8-7.8); Neutrophils % 72.4 % (37.0-80.0); Platelet Count 270 K/mm3 (142-424); Red Blood Count 3.67 M/mm3 (4.20-5.40); Red Cell Distribution Width 15.7 % (11.5-17.5); White Blood Count 9.1 K/mm3 (4.8-10.8)
[2018-10-07 23:01] LABS: Alanine Aminotransferase 17 U/L (12-78); Albumin Level 3.1 gm/dL (3.4-5.0); Albumin/Globulin Ratio 0.8 (1.1-1.8); Alkaline Phosphatase 134 U/L (46-116); Anion Gap 10.4 mEq/L (5-15); Aspartate Amino Transferase 26 U/L (15-37); Bilirubin,Total 0.3 mg/dL (0.2-1.0); Blood Urea Nitrogen 8 mg/dL (7-18); Carbon Dioxide 34 mmol/L (21.0-32.0); Chloride 83 mmol/L (98-107); Glucose 121 mg/dL (74-106); Potassium 3.4 mmoL/L (3.5-5.1); Sodium 124 mmol/L (136-145); Total Protein,Serum 7.1 gm/dL (6.4-8.2)
--- NOTE | 2018-10-07 23:35 | Emergency Department Note ---
ED Disposition Clinical Impression: Acute exacerbation of chronic obstructive airways disease, Tobacco use disorder, Oxygen dependent, Hyponatremia Acute bronchitis Qualifiers: Bronchitis organism: unspecified organism Qualified Code(s): J20.9 - Acute bronchitis, unspecified Disposition: Admitted As Inpatient Condition on Discharge: Serious - Critical Care Critical Care Time: No Attestation: On 10/07/18, the high probability of a clinically significant, sudden or life threatening deterioration of the following system(s) required my full and direct attention, intervention and personal management. The time I documented below is in addition to time spent performing reported procedures but includes the following listed in this critical care notation. Medical Decision Making - Medical Records Medical records reviewed: Yes: I reviewed the patient's medical records. - Vamsi Inquiry Pt receiving controlled substance: No Vital Signs: 10/07/18 22:14 10/07/18 23:06 10/08/18 00:09 Temperature 98 F Temperature Source Oral Pulse Rate 95 H Pulse Rate [Right Brachial] 108 H 139 H Respiratory Rate 26 H 42 H Blood Pressure [Right Arm] 100/68 L 156/57 H Blood Pressure Mean [Right Arm] 78 90 02 Sat by Pulse Oximetry 94 L 87 L Oxygen Delivery Method Nasal Cannula Nasal Cannula Oxygen Flow Rate (LPM) 2.5 2.5 10/08/18 00:10 Temperature 98.7 F Temperature Source Rectal Pulse Rate Pulse Rate [Right Brachial] Respiratory Rate Blood Pressure [Right Arm] Blood Pressure Mean [Right Arm] 02 Sat by Pulse Oximetry Oxygen Delivery Method Oxygen Flow Rate (LPM) - Lab Data Lab results reviewed: Yes: I reviewed the patient's lab results. Lab Results 10/07/18 22:20: WBC 9.1, RBC 3.67 L, Hgb 10.7 L, Hct 30.7 L, MCV 83.7, MCH 29.3, MCHC 35.0, RDW 15.7, Plt Count 270, MPV 7.6, Neut % (Auto) 72.4, Lymph % (Auto) 18.2, [place] % (Auto) 7.7, Eos % (Auto) 1.4, Baso % (Auto) 0.3, Neut # (Auto) 6.6, Lymph # (Auto) 1.7, [place] # (Auto) 0.7, Eos # (Auto) 0.1, Baso # (Auto) 0.0 10/07/18 22:20: Sodium 124 L, Potassium 3.4 L, Chloride 83 L, Carbon Dioxide 34 H, Anion Gap 10.4, BUN 8, Creatinine 0.55, Estimated Creat Clear 32, Estimated GFR 108, Est GFR ( Amer) 131, Glucose 121 H, Calcium 9.0, Total Bilirubin 0.3, AST 26, ALT 17, Alkaline Phosphatase 134 H, Troponin I < 0.02, Total Protein 7.1, Albumin 3.1 L, Globulin 4.0 H, Albumin/Globulin Ratio 0.8 L 10/07/18 22:20: Lactate 0.8 10/07/18 22:30: O2 % 30%, 2.5 lpm nc, ABG pH 7.46 H, ABG pCO2 44.7, ABG pO2 75.3 L, ABG HCO3 30.9 H, ABG Total CO2 32.2 H, ABG O2 Saturation 95, ABG Base Excess 7.0 H, Cirilo Test Acceptable 10/07/18 22:30: Influenza Type A Ag Negative, Influenza Type B Ag Negative Result diagrams: 10/07/18 22:20 10/07/18 22:20 Orders (Tests/Meds): ED MEDICATIONS Generic Name Dose Route Start Last Admin Trade Name Freq PRN Reason Stop Dose Admin Sodium Chloride 1,000 mls @ 999 mls/hr 10/07/18 23:45 Sod Chlor 0.9% 1000ml Bag IV 10/08/18 00:45 .Q1H1M DUANE Ceftriaxone Sodium 1 gm/ 50 mls @ 100 mls/hr 10/07/18 23:45 10/07/18 23:51 Sodium Chloride IV 10/21/18 23:44 100 mls/hr Q24H DUANE Administration Protocol Azithromycin 500 mg/ Sodium 250 mls @ 250 mls/hr 10/07/18 23:45 10/08/18 00:31 Chloride IV 10/21/18 23:44 250 mls/hr Q24H DUANE Administration Protocol Levalbuterol HCl 1.25 mg 10/08/18 06:00 Xopenex 1.25mg/3ml Neb IH 11/07/18 05:59 QIDRT DUANE Sodium Chloride 10 ml 10/07/18 22:21 Saline Flush 10ml Syringe IV 11/06/18 22:20 NEEDED PRN Maintain IV Site Sodium Chloride 3 ml 10/07/18 22:22 Sodium Chloride 3% 15ml [facility] 11/06/18 22:21 ONCE PRN INDUCE SPUTUM COLLECTION Discontinued Medications Generic Name Dose Route Start Last Admin Trade Name Romero PRN Reason Stop Dose Admin Albuterol/Ipratropium 3 ml 10/07/18 22:21 10/07/18 22:28 Duoneb 3ml [facility] 10/07/18 22:22 3 ml ONCE ONE Administration Albuterol/Ipratropium 3 ml 10/08/18 00:06 10/08/18 00:09 Duoneb 3ml [facility] 10/08/18 00:07 3 ml ONCE ONE Administration Aspirin 324 mg 10/07/18 22:25 10/07/18 22:28 Aspirin 81mg Chewable Tablet PO 10/07/18 22:26 324 mg ONCE ONE Administration Methylprednisolone Sodium Succinate 125 mg 10/07/18 22:21 10/07/18 22:28 Solu-Medrol 125mg/2ml Vial IV 10/07/18 22:22 125 mg ONCE ONE Administration Morphine Sulfate 1 mg 10/08/18 00:06 10/08/18 00:09 Morphine 2mg/Ml Syringe IV 10/08/18 00:07 1 mg ONCE ONE Administration Morphine Sulfate 1 mg 10/08/18 00:51 10/08/18 00:52 Morphine 2mg/Ml Syringe IV 10/08/18 00:52 1 mg ONCE ONE Administration Ondansetron HCl 4 mg 10/08/18 00:51 10/08/18 00:52 Zofran 4mg/2ml Vial IV 10/08/18 00:52 4 mg ONCE ONE Administration ORDERS Category Date Time Status XR chest portable Stat Exams 10/08/18 22:21 Taken Blood Culture Stat Micro 10/07/18 22:30 Ordered Sputum Culture & Gram Stain Stat Micro 10/07/18 22:22 Ordered Arterial Blood Gas Stat RT 10/07/18 22:30 Ordered - Radiology Data #1 Image(s): Chest Image Reviewed: Yes I reviewed the patient's radiology image Preliminary Findings: Abnormal #2 Image(s): Chest Image Reviewed: Yes I reviewed the patient's radiology image Preliminary Findings: Abnormal - ECG Data Tracing #1 Normal Sinus Rhythm: Yes Ischemic changes: non-specific ST-T wave changes - Physician Consults Physician Consulted: sound Reason -: Admission Resp/SOB HPI - General Chief Complaint: Shortness of Breath/Dyspnea Stated Complaint: SHORTNESS OF BREATH Time Seen by Provider: 10/07/18 22:30 Mode of Arrival: Wheelchair Source of Information: Patient, Relative, Medical Record Limitations: Physical Limitations Description of Symptoms (Recalled from ER Triage Doc. by RN): PT STATES SHE HAS BEEN HAVING MID UPPER BACK PAIN X 2 WEEKS. PT NOW C/O SHORTNESS OF BREATH, COUGH, CHEST CONGESTION AND CHEST PAIN X 4 DAYS. PT HOME O2 DEPENDENT AND CURRENT SMOKER. - History of Present Illness over the last few days progressive sob with cough and has hx of copd and tob use and chronic back pain MD Complaint: shortness of breath, cough Onset (ago): day(s) Severity: moderate Known history of: COPD Associated symptoms: cough, wheezing - Related Data Home oxygen amount: 2 liters Home Medications Medication Instructions Recorded Confirmed Albuterol Sulfate [Albuterol HFA 1 - 2 puffs IH Q4-6H PRN 08/15/18 10/07/18 Inhaler] Duloxetine HCl [Cymbalta] 60 mg PO DAILY 08/15/18 10/07/18 Fluticasone/Vilanterol [Breo 1 each IH DAILY 08/15/18 10/07/18 Ellipta 100-25 Mcg INH] Furosemide [Furosemide 40MG tAB] 40 mg PO DAILY 08/15/18 10/07/18 Montelukast Sodium [Singulair 10mg 10 mg PO PM 08/15/18 10/07/18 tablet] Primidone [Mysoline] 50 mg PO TID 08/15/18 10/07/18 Umeclidinium Clark [Incruse 1 puff IH DAILY 08/15/18 10/07/18 Ellipta] Umeclidinium Clark [Incruse 62.5 mcg IH DAILY 10/07/18 10/07/18 Ellipta] Previous Rx's Medication Instructions Recorded Potassium Chloride [K-Tab ER 10 10 meq PO BID #0 08/19/18 mEq] Allergies Allergy/AdvReac Type Severity Reaction Status Date / Time doxycycline [DOXYCYCLINE] Allergy Severe I-HIVES, Verified 10/07/18 22:20 ITCHING, NAUSEA/VOMITING Sulfa (Sulfonamide Allergy Unknown Verified 01/07/19 22:20 Antibiotics) [facility] History - Hepatitis A Screen Drug use history?: No High risk sexual behaviors?: No History of sexually transmitted infection?: No Currently employed?: No Childcare worker?: No Do you have indoor plumbing?: Yes Do you have electricity?: Yes Attestation statement:: This patient has been screened for Hepatitis A risk factors. 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, Vit D deficiency Laterality Cases: Right: Other, Bilateral: Tonsillectomy Other Surgeries: Yes: Cholecystectomy, Tubal Ligation, Other Amputation: Yes Comment: Right foot bunionectomy, Right knee arthroscopy, T12 kyphoplasty, Esophageal dilatation - Social History Smoking Status: Current every day smoker Tobacco Type: cigarettes # Packs/Day (cigarettes): 1 #Yrs smoked (if former smoker): 58 Alcohol Intake: never Occupational Status: retired Housing: house Household Members: family - Psychiatric History Expresses thoughts of harming self/others: None Suicide Plan Description: No Plan Family Hx:: Heart Attack Comment: COPD, Alzheimers ROS Obtained: Yes All systems reviewed & no additional complaints - Constitutional Constitutional: Denies fever(s) - Eyes Eyes: Denies eye discharge - ENT Ears, Nose, Mouth, and Throat: Denies sore throat - Cardiovascular Cardiovascular: Reports chest pain, Reports dyspnea - Respiratory Respiratory: Yes as per HPI, No change in phlegm color, Yes cough, No non- productive cough - Gastrointestinal Gastrointestingal: Denies: abdominal pain, vomiting - Genitourinary Female Genitourinary: Denies dysuria, Denies hematuria - Musculoskeletal Musculoskeletal: Reports as per HPI, Denies joint pain, Reports back pain, Reports limited range of motion - Integumentary/Breasts Skin/Breast: Denies rash - Neurologic Neurologic: Denies headache(s), Denies seizure-like activity Physical Exam - General General appearance: alert, anxious, cachectic - Head Head exam: normocephalic - Eye Eye exam: Present: PERRL, EOMI. Absent: scleral icterus - ENT ENT exam: Present: mucous membranes dry - Neck Neck exam: Present: trachea midline - Respiratory Respiratory exam: Present: wheezes, accessory muscle use, prolonged expiratory phase. Absent: respiratory distress - Cardiovascular Cardiovascular exam: Present: regular rate, systolic murmur, +S4 - Abdominal Exam Abdominal exam: Present: soft - Extremities Exam Extremities exam: Absent: calf tenderness - Back Exam Back exam: Present: other (kyphosis) - Neurological Exam Neurological exam: Present: alert, CN II-XII intact - Psychiatric Psychiatric exam: Present: anxious - Skin Skin exam: Absent: rash
[2018-10-08 06:25] LABS: Anion Gap 10.4 mEq/L (5-15); Blood Urea Nitrogen 11 mg/dL (7-18); Calcium 8.7 mg/dL (8.5-10.1); Carbon Dioxide 31 mmol/L (21.0-32.0); Chloride 88 mmol/L (98-107); Glucose 129 mg/dL (74-106); Potassium 3.4 mmoL/L (3.5-5.1); Sodium 126 mmol/L (136-145)
[2018-10-08 07:02] LABS: Hemoglobin 9.9 g/dL (12.2-16.2); Red Blood Count 3.53 M/mm3 (4.20-5.40); White Blood Count 8.4 K/mm3 (4.8-10.8)
[2018-10-08 07:03] LABS: Basophils % 0.1 % (0.1-2.0); Eosinophils % 0.1 % (0.1-12.0); Hematocrit 29.7 % (37.0-47.0); Lymphocytes # 0.5 K/mm3 (0.7-4.5); Lymphocytes % 5.4 % (10-50); Mean Corpuscular HGB Conc 33.4 g/dL (31.8-35.4); Mean Corpuscular Hemoglobin 28.1 pg (27.0-31.2); Mean Corpuscular Volume 84.1 fl (81-99); Mean Platelet Volume 7.7 fl (7.4-10.4); Monocytes # 0.2 K/mm3 (0.1-1.0); Monocytes % 2.9 % (1.7-9.3); Neutrophils # 7.6 K/mm3 (1.8-7.8); Neutrophils % 91.5 % (37.0-80.0); Platelet Count 226 K/mm3 (142-424); Red Cell Distribution Width 15.6 % (11.5-17.5)
--- NOTE | 2018-10-08 07:55 | Pharmacy Consult Notes ---
[facility] Pharmacy VTE Monitoring - Patient Demographics Admission date: 10/08/18 Report Date: 10/08/18 Time: 07:55 Allergies/Adverse Reactions: Patient Allergies doxycycline [DOXYCYCLINE] Allergy (Severe, Verified 10/08/18 02:46) I-HIVES, ITCHING, NAUSEA/VOMITING Sulfa (Sulfonamide Antibiotics) Allergy (Unknown, Verified 10/08/18 02:46) Height: 1.47 m Weight: 40.37 kg Patient Problems: Current Active Problems Acute exacerbation of chronic obstructive airways disease (Acute) Tobacco use disorder (Chronic) Oxygen dependent (Chronic) Acute bronchitis (Acute) Hyponatremia (Acute) - VTE Risk Labs: VTE Related Lab Results Hgb 9.9 g/dL (12.2-16.2) L 10/08/18 05:50 Hct 29.7 % (37.0-47.0) L 10/08/18 05:50 Plt Count 226 K/mm3 (142-424) 10/08/18 05:50 BUN 11 mg/dL (7-18) D 10/08/18 05:50 Creatinine 0.59 mg/dL (0.55-1.02) 10/08/18 05:50 Estimated Creat Clear 31 mL/min (50-200) 10/08/18 05:50 Was VTE Risk Assessment Performed: Yes VTE Score: 5 VTE Risk Level: Low Risk Clinical Trial Participant: No - Prophylaxis VTE Prophylaxis Ordered?: Yes Types of VTE Prophylaxis: TEDS Knee High Location of Applied Device: Bilateral Lower Extremeties
[2018-10-08 09:35] LABS: Lymphocytes % 6 % (10-50); Monocytes % 2 % (2-9); Neutrophils % 92 % (42-76); Total Cells Counted 100
--- NOTE | 2018-10-08 09:42 | History & Physical Report ---
*Admission Date: 10/08/18 <NickKimmie 10/08/18 09:52> *Chief complaint: Could not breathe <Kimmie Romero 10/08/18 09:52> *History of present illness: Ms. Mahoney is a 73-year-old female with history of oxygen dependent COPD, esophageal stricture, and degenerative disc disease who presented to [facility] emergency room with progressive shortness of breath over the last 2-3 days. She states she has not felt well since being seen in the office of [facility] on 09/13/2018 with severe back pain. She does have a history of multiple compression fractures and has had a previous kyphoplasty at T12. With this office visit her breathing status was stable. She states she has not had a fever, denies a sore throat, and does have a dry cough. She felt like she was going to last night. She does deny chest pain as well. She has had minimal p.o. intake. This a.m. patient is on Vapotherm at 35% and does feel better. She has been able to rest a little. She states her back is not hurting her at present. Troponin I's have been normal x3 <Kimmie Romero 10/08/18 10:08> [facility] History Medical History: Reports:: Chronic Obstructive Pulmonary Disease (COPD) (oxygen dependent) Denies:: Cancer, Diabetes Mellitus Type 1, Diabetes Mellitus Type 2, MRSA <Kimmie Romero 10/08/18 09:52> Have you ever received a pneumonia vaccine?: Yes <Kimmie Romero 10/08/18 09:52> Have you received a flu vaccine this season?: Yes <Kimmie Romero 10/08/18 09:52> Other Medical History: Reports: Arthritis, Cataracts, Fibromyalgia <Kimmie Romero 10/08/18 09:52> Comment:: She has had multiple compression fractures with kyphoplasty at T12 <Kimmie Romero 10/08/18 09:52> Laterality Cases: Right: Other, Bilateral: Tonsillectomy <Kimmie Romero 10/08/18 09:52> Other Surgeries: Yes: Cholecystectomy, Tubal Ligation, Other (Right Foot) <Kimmie Romero 10/08/18 09:52> Amputation: No <Kimmie Romero 10/08/18 09:52> - *Social History Educational Level: Attended College <Kimmie Romero 10/08/18 09:52> Smoking Status: Current every day smoker <Kimmie Romero 10/08/18 09:52> Tobacco Type: cigarettes <Kimmie Romero 10/08/18 09:52> # Packs/Day (cigarettes): 1 <NickKimmie 10/08/18 09:52> #Yrs smoked (if former smoker): 58 <Kimmie Romero 10/08/18 09:52> Alcohol Intake: never <Kimmie Romero 10/08/18 09:52> Occupational Status: retired <Kimmie Romero 10/08/18 09:52> Housing: house <Kimmie Romero 10/08/18 09:52> Household Members: family <Kimmie Romero 10/08/18 09:52> Travel in the last 8 weeks: None <NickKimmie 10/08/18 09:52> - Psychiatric History Expresses thoughts of harming self/others: None <Kimmie Romero 10/08/18 09:52> Suicide Plan Description: No Plan <Kimmie Romero 10/08/18 09:52> *Family Hx:: Heart Attack <NickKimmie 10/08/18 09:52> Review of Systems - Constitutional Reports headache(s), Reports weakness <NickKimmie 10/08/18 09:52> - ENT Reports dizziness, Reports headache(s), Denies ear pain, Denies sore throat <NickKimmie 10/08/18 09:52> - *Cardiovascular Reports shortness of breath, Denies chest pain <NickKimmie 10/08/18 09:52> - *Respiratory Reports chest congestion, Reports cough, Reports shortness of breath, Denies coughing up blood <NickKimmie 10/08/18 10:08> - *Gastrointestinal Denies abdominal pain, Denies bloating, Denies constipation, Denies nausea, Denies vomiting <RomeroKimmie 10/08/18 10:08> - *Genitourinary Denies difficulty urinating <Kimmie Romero - 10/08/18 10:08> - *Musculoskeletal Reports muscle weakness, Reports body aches <Kimmie Romero - 10/08/18 10:08> - *Neurologic Reports dizziness, Denies headache(s), Denies seizure-like activity <Kimmie Romero - 10/08/18 10:08> Meds Home Medications Medication Instructions Recorded Confirmed Type Albuterol Sulfate [Albuterol HFA 1 - 2 puffs IH Q4-6H PRN 08/15/18 10/08/18 History Inhaler] Duloxetine HCl [Cymbalta] 60 mg PO HS 08/15/18 10/08/18 History Fluticasone/Vilanterol [Breo 1 each IH DAILY 08/15/18 10/08/18 History Ellipta 100-25 Mcg INH] Furosemide [Furosemide 40MG tAB] 40 mg PO DAILYP PRN 08/15/18 10/08/18 History Montelukast Sodium [Singulair 10mg 10 mg PO HS 08/15/18 10/08/18 History tablet] Primidone [Mysoline] 50 mg PO TID 08/15/18 10/08/18 History Umeclidinium [place] [Incruse 1 puff IH DAILY 08/15/18 10/08/18 History Ellipta] Potassium Chloride [K-Tab ER 10 10 meq PO BID #0 08/19/18 10/08/18 Rx mEq] Cholecalciferol (Vitamin D3) 2,000 unit PO DAILY 10/08/18 10/08/18 History [Vitamin D3] Melatonin 10 mg PO HS 10/08/18 10/08/18 History Omeprazole [Omeprazole 20mg 20 mg PO HS 10/08/18 10/08/18 History Capsule] <Clayton Isabel - 10/08/18 17:52> Allergies Allergy/AdvReac Type Severity Reaction Status Date / Time doxycycline [DOXYCYCLINE] Allergy Severe I-HIVES, Verified 10/08/18 02:46 ITCHING, NAUSEA/VOMITING Sulfa (Sulfonamide Allergy Unknown Verified 10/08/18 02:46 Antibiotics) <Clayton Isabel - 10/08/18 17:52> Exam Vital signs and Labs for Last 24 Hours: Temp Pulse Resp BP Pulse Ox 98.3 F 108 H 24 127/62 90 L 10/08/18 12:30 10/08/18 14:25 10/08/18 12:30 10/08/18 12:30 10/08/18 14:25 Laboratory Results - last 24 hr 10/07/18 22:20: WBC 9.1, RBC 3.67 L, Hgb 10.7 L, Hct 30.7 L, MCV 83.7, MCH 29.3, MCHC 35.0, RDW 15.7, Plt Count 270, MPV 7.6, Neut % (Auto) 72.4, Lymph % (Auto) 18.2, Band[place] % (Auto) 7.7, Eos % (Auto) 1.4, Baso % (Auto) 0.3, Neut # (Auto) 6.6, Lymph # (Auto) 1.7, Band[place] # (Auto) 0.7, Eos # (Auto) 0.1, Baso # (Auto) 0.0 10/07/18 22:20: Sodium 124 L, Potassium 3.4 L, Chloride 83 L, Carbon Dioxide 34 H, Anion Gap 10.4, BUN 8, Creatinine 0.55, Estimated Creat Clear 32, Estimated GFR 108, Est GFR ( Amer) 131, Glucose 121 H, Calcium 9.0, Total Bilirubin 0.3, AST 26, ALT 17, Alkaline Phosphatase 134 H, Troponin I < 0.02, Total Protein 7.1, Albumin 3.1 L, Globulin 4.0 H, Albumin/Globulin Ratio 0.8 L 10/07/18 22:20: Lactate 0.8 10/07/18 22:30: O2 % 30%, 2.5 lpm nc, ABG pH 7.46 H, ABG pCO2 44.7, ABG pO2 75.3 L, ABG HCO3 30.9 H, ABG Total CO2 32.2 H, ABG O2 Saturation 95, ABG Base Excess 7.0 H, Cirilo Test Acceptable 10/07/18 22:30: Influenza Type A Ag Negative, Influenza Type B Ag Negative 10/08/18 05:50: WBC 8.4, RBC 3.53 L, Hgb 9.9 L, Hct 29.7 L, MCV 84.1, MCH 28.1, MCHC 33.4, RDW 15.6, Plt Count 226, MPV 7.7, Neut % (Auto) 91.5 H, Lymph % (Auto) 5.4 L, Band[place] % (Auto) 2.9, Eos % (Auto) 0.1, Baso % (Auto) 0.1, Neut # (Auto) 7.6, Lymph # (Auto) 0.5 L, Band[place] # (Auto) 0.2, Eos # (Auto) 0.0, Baso # (Auto) 0.0, Total Counted 100, Neutrophils % (Manual) 92 H, Lymphocytes % (Manual) 6 L, Monocytes % (Manual) 2, Platelet Estimate Normal 10/08/18 05:50: Sodium 126 L, Potassium 3.4 L, Chloride 88 L, Carbon Dioxide 31, Anion Gap 10.4, BUN 11 D, Creatinine 0.59, Estimated Creat Clear 31, Estimated GFR 100, Est GFR ( Amer) 121, Glucose 129 H, Calcium 8.7, Magnesium 1.3 L, Troponin I < 0.02 10/08/18 08:26: Troponin I < 0.02 <Clayton Isabel - 10/08/18 17:52> Temp Pulse Resp BP Pulse Ox 98.1 F 96 H 24 120/56 L 93 L 10/08/18 02:49 10/08/18 08:31 10/08/18 08:31 10/08/18 08:31 10/08/18 08:31 Laboratory Results - last 24 hr 10/07/18 22:20: WBC 9.1, RBC 3.67 L, Hgb 10.7 L, Hct 30.7 L, MCV 83.7, MCH 29.3, MCHC 35.0, RDW 15.7, Plt Count 270, MPV 7.6, Neut % (Auto) 72.4, Lymph % (Auto) 18.2, Bandera % (Auto) 7.7, Eos % (Auto) 1.4, Baso % (Auto) 0.3, Neut # (Auto) 6.6, Lymph # (Auto) 1.7, Band[place] # (Auto) 0.7, Eos # (Auto) 0.1, Baso # (Auto) 0.0 10/07/18 22:20: Sodium 124 L, Potassium 3.4 L, Chloride 83 L, Carbon Dioxide 34 H, Anion Gap 10.4, BUN 8, Creatinine 0.55, Estimated Creat Clear 32, Estimated GFR 108, Est GFR ( Amer) 131, Glucose 121 H, Calcium 9.0, Total Bilirubin 0.3, AST 26, ALT 17, Alkaline Phosphatase 134 H, Troponin I < 0.02, Total Protein 7.1, Albumin 3.1 L, Globulin 4.0 H, Albumin/Globulin Ratio 0.8 L 10/07/18 22:20: Lactate 0.8 10/07/18 22:30: O2 % 30%, 2.5 lpm nc, ABG pH 7.46 H, ABG pCO2 44.7, ABG pO2 75.3 L, ABG HCO3 30.9 H, ABG Total CO2 32.2 H, ABG O2 Saturation 95, ABG Base Excess 7.0 H, Cirilo Test Acceptable 10/07/18 22:30: Influenza Type A Ag Negative, Influenza Type B Ag Negative 10/08/18 05:50: WBC 8.4, RBC 3.53 L, Hgb 9.9 L, Hct 29.7 L, MCV 84.1, MCH 28.1, MCHC 33.4, RDW 15.6, Plt Count 226, MPV 7.7, Neut % (Auto) 91.5 H, Lymph % (Auto) 5.4 L, Bandera % (Auto) 2.9, Eos % (Auto) 0.1, Baso % (Auto) 0.1, Neut # (Auto) 7.6, Lymph # (Auto) 0.5 L, Bandera # (Auto) 0.2, Eos # (Auto) 0.0, Baso # (Auto) 0.0, Total Counted 100, Neutrophils % (Manual) 92 H, Lymphocytes % (Manual) 6 L, Monocytes % (Manual) 2, Platelet Estimate Normal 10/08/18 05:50: Sodium 126 L, Potassium 3.4 L, Chloride 88 L, Carbon Dioxide 31, Anion Gap 10.4, BUN 11 D, Creatinine 0.59, Estimated Creat Clear 31, Estimated GFR 100, Est GFR ( Amer) 121, Glucose 129 H, Calcium 8.7, Magnesium 1.3 L, Troponin I < 0.02 10/08/18 08:26: Troponin I < 0.02 <Kimmie Romero - 10/08/18 09:52> I & O for Last 24 hours: Intake & Output 10/06/18 10/07/18 10/08/18 10/09/18 11:59 11:59 11:59 11:59 Intake Total 1789 / 1789 Output Total 450 / 450 Balance 1339 / 1339 Weight 89 lb <Clayton Isabel - 10/08/18 17:52> Intake & Output 10/05/18 10/06/18 10/07/18 10/08/18 11:59 11:59 11:59 11:59 Intake Total 1789 / 1789 Balance 1789 / 1789 Weight 89 lb <Kimmie Romero - 10/08/18 09:52> Radiology Reports for the Last 24 Hours: 10/08/2018 chest x-ray IMPRESSION: Chronic change, no acute finding 10/08/2018 lumbar spine x-ray IMPRESSION: 1. Mild wedge compression changes involving the central anterior aspect of L1 which appear slightly worse 2. Prior vertebroplasty at T12 <Kimmie Romero 10/08/18 10:08> - Constitutional no acute distress <Kimmie Romero 10/08/18 10:08> Comments: Awakened for assessment. Remains on Vapotherm at 35%. She appears comfortable <Kimmie Romero 10/08/18 10:08> - *Routine HEENT Exam Head: Present: normocephalic, atraumatic <Kimmie Romero 10/08/18 10:08> Eye: Present: PERRL <Kimmie Romero 10/08/18 10:08> ENT: Present: mucous membranes moist, oropharynx clear, nares patent <Kimmie Romero 10/08/18 10:08> - *Routine Neck Exam Present: supple. Absent: lymphadenopathy, thyromegaly <Kimmie Romero 10/08/18 10:08> Comments: Unable to assess carotids due to Vapotherm noise <Kimmie Romero 10/08/18 10:08> - *Routine Respiratory Exam Comments: Diminished breath sounds posteriorly with fine bibasilar crackles. <Kimmie Romero 10/08/18 10:08> - *Routine Cardiovascular Exam Present: RRR <Kimmie Romero 10/08/18 10:08> - *Routine Abdominal Exam Present: soft, normoactive bowel sounds. Absent: tenderness, distended <Kimmie Romero 10/08/18 10:08> - *Routine Extremities Exam Absent: edema, calf tenderness <Kimmie Romero 10/08/18 10:08> Comments: Bilateral heel pain relieved by removal of IAIN hose. Skin is intact. <Kimmie Romero 10/08/18 10:08> - Routine Back/Spine/Pelvis Exam Back/Spine: Present: kyphosis. Absent: paraspinal tenderness, vertebral tenderness <Kimmie Romero 10/08/18 10:08> Assessment and Plan (1) Acute exacerbation of chronic obstructive airways disease Current visit: Yes Status: Acute Category: Medical Code(s): J44.1 - Chronic obstructive pulmonary disease with (acute) exacerbation (2) Acute bronchitis Current visit: Yes Status: Acute Qualifiers: Bronchitis organism: unspecified organism Qualified Code(s): J20.9 - Acute bronchitis, unspecified Category: Medical Code(s): J20.9 - Acute bronchitis, unspecified (3) Low back pain Current visit: Yes Status: Acute Category: Medical Code(s): M54.5 - Low back pain (4) Hyponatremia Current visit: Yes Status: Acute Category: Medical Code(s): E87.1 - Hypo- osmolality and hyponatremia (5) Oxygen dependent Current visit: Yes Status: Chronic Category: Medical Code(s): Z99.81 - Dependence on supplemental oxygen (6) Tobacco use disorder Current visit: Yes Status: Chronic Category: Medical Code(s): F17.200 - N icotine dependence, unspecified, uncomplicated (7) Aortic regurgitation Current visit: No Status: Acute Category: Medical Code(s): I35.1 - Nonrheumatic aortic (valve) insufficiency (8) Hypokalemia Current visit: No Status: Acute Category: Medical Code(s): E87.6 - Hypokalemia <MaameClayton Ki - 10/08/18 17:52> (1) Back pain Current visit: Yes Status: Acute Category: Medical Code(s): M54.9 - Dorsalgia, unspecified (2) Acute bronchitis Current visit: Yes Status: Acute Qualifiers: Bronchitis organism: unspecified organism Qualified Code(s): J20.9 - Acute bronchitis, unspecified Category: Medical Code(s): J20.9 - Acute bronchitis, unspecified (3) Acute exacerbation of chronic obstructive airways disease Current visit: Yes Status: Acute Category: Medical Code(s): J44.1 - Chronic obstructive pulmonary disease with (acute) exacerbation (4) Hyponatremia Current visit: Yes Status: Acute Category: Medical Code(s): E87.1 - Hypo- osmolality and hyponatremia (5) Oxygen dependent Current visit: Yes Status: Chronic Category: Medical Code(s): Z99.81 - Dep endence on supplemental oxygen (6) Tobacco use disorder Current visit: Yes Status: Chronic Category: Medical Code(s): F17.200 - Nicotine dependence, unspecified, uncomplicated (7) Aortic regurgitation Current visit: No Status: Acute Category: Medical Code(s): I35.1 - Nonrheumatic aortic (valve) insufficiency (8) Hypokalemia Current visit: No Status: Acute Category: Medical Code(s): E87.6 - Hypokalemia <Kimmie Romero - 10/08/18 09:55> - Assessment and plan all Dx Assessment and Plan for all problems:: Patient seen and examined this AM. Concur with above. She feels a little better this morning with her breathing and for the first time she tells me she wants to quit smoking. Her back pain remains severe and is limiting her mobility. Outpt xrays a month ago showed no acute changes in her lower back. SHe has had previous kyphoplasty of T12. Will plan to repeat xrays of her LS spine today - suspect compression fracture. Continue IV antibiotics pending cultures. Will attempt to wean Vapotherm today. <Clayton Isabel - 10/08/18 17:52> Maintain adequate oxygenation with Vapotherm. Continue with Rocephin and Zithromax and duo nebs. <Kimmie Romero - 10/08/18 10:08>
[2018-10-09 06:50] LABS: Basophils % 0.3 % (0.1-2.0); Eosinophils # 0.1 K/mm3 (0.0-0.4); Eosinophils % 1.1 % (0.1-12.0); Hematocrit 31.9 % (37.0-47.0); Hemoglobin 9.9 g/dL (12.2-16.2); Lymphocytes # 1.3 K/mm3 (0.7-4.5); Lymphocytes % 17.3 % (10-50); Mean Corpuscular HGB Conc 31.1 g/dL (31.8-35.4); Mean Corpuscular Volume 86.7 fl (81-99); Mean Platelet Volume 7.1 fl (7.4-10.4); Monocytes # 0.9 K/mm3 (0.1-1.0); Monocytes % 12.3 % (1.7-9.3); Neutrophils # 5.3 K/mm3 (1.8-7.8); Neutrophils % 68.8 % (37.0-80.0); Platelet Count 320 K/mm3 (142-424); Red Blood Count 3.68 M/mm3 (4.20-5.40); Red Cell Distribution Width 15.6 % (11.5-17.5); White Blood Count 7.6 K/mm3 (4.8-10.8)
[2018-10-09 07:04] LABS: Anion Gap 5.1 mEq/L (5-15); Calcium 8.6 mg/dL (8.5-10.1); Potassium 3.1 mmoL/L (3.5-5.1)
--- NOTE | 2018-10-09 07:53 | Progress Note ---
<Kimmie Romero - Last Filed: 10/09/18 07:50> Internal Medicine - PN: Subj *Date: 10/09/18 *Time: 07:50 Interval history: Patient states that he might feel little bit better today. Breathing is better. She has Pain in her back which is improved with her pain medicine. She was awake until about 4:00 this morning with her back pain. She has increasing pain with getting out of bed and using the bedside commode. She is actually hungry this morning. Bowels have not moved. She denies nausea. Sodium has increased to 136 today and potassium low at 3.1.. She remains on Vapotherm at 35% with O2 sat at 90% this a.m. Exam Vital signs and Labs for Last 24 Hours: Temp Pulse Resp BP Pulse Ox 97.9 F 103 H 20 124/53 L 90 L 10/09/18 04:00 10/09/18 06:19 10/09/18 04:00 10/09/18 04:00 10/09/18 07:44 Laboratory Results - last 24 hr 10/08/18 05:50: Total Counted 100, Neutrophils % (Manual) 92 H, Lymphocytes % (Manual) 6 L, Monocytes % (Manual) 2, Platelet Estimate Normal 10/08/18 08:26: Troponin I < 0.02 10/09/18 06:30: WBC 7.6, RBC 3.68 L, Hgb 9.9 L, Hct 31.9 L, MCV 86.7, MCH 27.0, MCHC 31.1 L, RDW 15.6, Plt Count 320 D, MPV 7.1 L, Neut % (Auto) 68.8, Lymph % (Auto) 17.3, Sullivan % (Auto) 12.3 H, Eos % (Auto) 1.1, Baso % (Auto) 0.3, Neut # (Auto) 5.3, Lymph # (Auto) 1.3, Sullivan # (Auto) 0.9, Eos # (Auto) 0.1, Baso # (Auto) 0.0 10/09/18 06:30: Sodium 136, Potassium 3.1 L, Chloride 97 L, Carbon Dioxide 37 H, Anion Gap 5.1, BUN 10, Creatinine 0.73 D, Estimated Creat Clear 32, Estimated GFR 78, Est GFR ( Amer) 94 D, Glucose 96, Calcium 8.6 I & O for Last 24 hours: Intake & Output 10/06/18 10/07/18 10/08/18 10/09/18 11:59 11:59 11:59 11:59 Intake Total 1789 / 1789 240 / 240 Output Total 600 / 600 200 / 200 Balance 1189 / 1189 40 / 40 Weight 89 lb 91 lb 1 oz - Constitutional no acute distress Comments: Sitting up in bed and beginning to eat her breakfast. Appears comfortable - *Routine Respiratory Exam Comments: Diminished breath sounds posteriorly - *Routine Cardiovascular Exam Present: RRR - *Routine Abdominal Exam Present: soft, normoactive bowel sounds. Absent: tenderness, distended - *Routine Extremities Exam Absent: edema, calf tenderness - *Routine Neurological Exam Present: alert, oriented X3 Assessment and Plan (1) Acute exacerbation of chronic obstructive airways disease Current visit: Yes Status: Acute Category: Medical Code(s): J44.1 - Chronic obstructive pulmonary disease with (acute) exacerbation (2) Acute bronchitis Current visit: Yes Status: Acute Qualifiers: Bronchitis organism: unspecified organism Qualified Code(s): J20.9 - Acute bronchitis, unspecified Category: Medical Code(s): J20.9 - Acute bronchitis, unspecified (3) Low back pain Current visit: Yes Status: Acute Category: Medical Code(s): M54.5 - Low back pain (4) Hyponatremia Current visit: Yes Status: Acute Category: Medical Code(s): E87.1 - Hypo- osmolality and hyponatremia (5) Oxygen dependent Current visit: Yes Status: Chronic Category: Medical Code(s): Z99.81 - Dependence on supplemental oxygen (6) Tobacco use disorder Current visit: Yes Status: Chronic Category: Medical Code(s): F17.200 - Nicotine dependence, unspecified, uncomplicated (7) Aortic regurgitation Current visit: No Status: Acute Category: Medical Code(s): I35.1 - Nonrheumatic aortic (valve) insufficiency (8) Hypokalemia Current visit: No Status: Acute Category: Medical Code(s): E87.6 - Hypokalemia - Assessment and plan all Dx Assessment and Plan for all problems:: We give additional potassium today. <Clayton Isabel - Last Filed: 10/09/18 09:04> Exam Vital signs and Labs for Last 24 Hours: Temp Pulse Resp BP Pulse Ox 97.8 F 103 H 20 127/53 L 90 L 10/09/18 08:00 10/09/18 08:00 10/09/18 04:00 10/09/18 08:00 10/09/18 08:00 Laboratory Results - last 24 hr 10/08/18 05:50: Total Counted 100, Neutrophils % (Manual) 92 H, Lymphocytes % (Manual) 6 L, Monocytes % (Manual) 2, Platelet Estimate Normal 10/08/18 08:26: Troponin I < 0.02 10/09/18 06:30: WBC 7.6, RBC 3.68 L, Hgb 9.9 L, Hct 31.9 L, MCV 86.7, MCH 27.0, MCHC 31.1 L, RDW 15.6, Plt Count 320 D, MPV 7.1 L, Neut % (Auto) 68.8, Lymph % (Auto) 17.3, Sullivan % (Auto) 12.3 H, Eos % (Auto) 1.1, Baso % (Auto) 0.3, Neut # (Auto) 5.3, Lymph # (Auto) 1.3, Sullivan # (Auto) 0.9, Eos # (Auto) 0.1, Baso # (Auto) 0.0 10/09/18 06:30: Sodium 136, Potassium 3.1 L, Chloride 97 L, Carbon Dioxide 37 H, Anion Gap 5.1, BUN 10, Creatinine 0.73 D, Estimated Creat Clear 32, Estimated GFR 78, Est GFR ( Amer) 94 D, Glucose 96, Calcium 8.6 I & O for Last 24 hours: Intake & Output 10/06/18 10/07/18 10/08/18 10/09/18 11:59 11:59 11:59 11:59 Intake Total 1789 / 1789 360 / 360 Output Total 600 / 600 200 / 200 Balance 1189 / 1189 160 / 160 Weight 89 lb 91 lb 1 oz Assessment and Plan (1) Acute exacerbation of chronic obstructive airways disease Current visit: Yes Status: Acute Category: Medical Code(s): J44.1 - Chronic obstructive pulmonary disease with (acute) exacerbation (2) Acute bronchitis Current visit: Yes Status: Acute Qualifiers: Bronchitis organism: unspecified organism Qualified Code(s): J20.9 - Acute bronchitis, unspecified Category: Medical Code(s): J20.9 - Acute bronchitis, unspecified (3) Low back pain Current visit: Yes Status: Acute Category: Medical Code(s): M54.5 - Low back pain (4) Hyponatremia Current visit: Yes Status: Acute Category: Medical Code(s): E87.1 - Hypo- osmolality and hyponatremia (5) Oxygen dependent Current visit: Yes Status: Chronic Category: Medical Code(s): Z99.81 - Dependence on supplemental oxygen (6) Tobacco use disorder Current visit: Yes Status: Chronic Category: Medical Code(s): F17.200 - Nicotine dependence, unspecified, uncomplicated (7) Aortic regurgitation Current visit: No Status: Acute Category: Medical Code(s): I35.1 - Nonrheumatic aortic (valve) insufficiency (8) Hypokalemia Current visit: No Status: Acute Category: Medical Code(s): E87.6 - Hypokalemia (9) Compression fracture of L1 lumbar vertebra Current visit: Yes Status: Acute Category: Medical Code(s): S32.010A - Wedge compression fracture of first lumbar vertebra, initial encounter for closed fracture - Assessment and plan all Dx Assessment and Plan for all problems:: Patient seen and examined. Breathing is comfortable at rest but very dyspneic with slightest exertion. No improvement in back pain. Repeat xray yesterday showed new compression changes of L1. Started on [place] last night with some benefit. Will get PT eval today. Sodium improved. KCl supplement increased. May need to consider LTC placement.
--- NOTE | 2018-10-10 08:30 | Progress Note ---
Internal Medicine - PN: Subj Interval history: Weaned off Vapotherm yesterday and breathing has been "OK". Sats are >90%. Rested a little better last night but still not sleeping well due to back pain. PT eval from yesterday noted. Appetite has improved. Exam Vital signs and Labs for Last 24 Hours: Temp Pulse Resp BP Pulse Ox 97.8 F 95 H 21 123/48 L 95 10/10/18 04:05 10/10/18 07:02 10/10/18 04:05 10/10/18 04:05 10/10/18 07:44 I & O for Last 24 hours: Intake & Output 10/07/18 10/08/18 10/09/18 10/10/18 11:59 11:59 11:59 11:59 Intake Total 1789 / 1789 360 / 360 2375 / 2375 Output Total 600 / 600 200 / 200 850 / 850 Balance 1189 / 1189 160 / 160 1525 / 1525 Weight 89 lb 91 lb 1 oz 96 lb 7 oz Microbiology Reports for the Last 24 Hours: Microbiology 10/07/18 22:30 Blood Blood Culture - Preliminary NO GROWTH AFTER 48 HOURS 10/07/18 22:30 Blood Blood Culture - Preliminary NO GROWTH AFTER 48 HOURS 10/09/18 11:00 Sputum - Expectorated Sputum Gram Stain - Final - Constitutional Comments: sitting up in bed with supplemental O2 in place. No resp distress. Obvious back pain with position change in bed. - Routine Chest/Breast/Axilla Exam Comments: coarse upper airway rhonchi - *Routine Cardiovascular Exam Present: RRR - *Routine Extremities Exam Absent: edema Assessment and Plan (1) Acute exacerbation of chronic obstructive airways disease Current visit: Yes Status: Acute Category: Medical Code(s): J44.1 - Chronic obstructive pulmonary disease with (acute) exacerbation (2) Acute bronchitis Current visit: Yes Status: Acute Qualifiers: Bronchitis organism: unspecified organism Qualified Code(s): J20.9 - Acute bronchitis, unspecified Category: Medical Code(s): J20.9 - Acute bronchitis, unspecified (3) Low back pain Current visit: Yes Status: Acute Category: Medical Code(s): M54.5 - Low back pain (4) Hyponatremia Current visit: Yes Status: Acute Category: Medical Code(s): E87.1 - Hypo- osmolality and hyponatremia (5) Oxygen dependent Current visit: Yes Status: Chronic Category: Medical Code(s): Z99.81 - Dependence on supplemental oxygen (6) Tobacco use disorder Current visit: Yes Status: Chronic Category: Medical Code(s): F17.200 - Nicotine dependence, unspecified, uncomplicated (7) Aortic regurgitation Current visit: No Status: Acute Category: Medical Code(s): I35.1 - Nonrheumatic aortic (valve) insufficiency (8) Hypokalemia Current visit: No Status: Acute Category: Medical Code(s): E87.6 - Hypokalemia (9) Compression fracture of L1 lumbar vertebra Current visit: Yes Status: Acute Category: Medical Code(s): S32.010A - Wedge compression fracture of first lumbar vertebra, initial encounter for closed fracture (10) Adult BMI <19 kg/sq m Current visit: Yes Status: Acute Category: Medical Code(s): Z68.1 - Body mass index (BMI) 19.9 or less, adult - Assessment and plan all Dx Assessment and Plan for all problems:: Clinically improving. SHe has weaned off the Vapotherm and sats have been stable >90. PT eval noted but patient states she walked less than 5 feet. She is home alone during the day when family is working. Discussed referral for short term inpatient rehab but she is hesitant. Will see if she can ambulate in hallway today. IV the saline lock. SPutum cultures pending. Likely home soon.
--- NOTE | 2018-10-11 16:07 | Discharge Summary ---
General - General Admission date:: 10/08/18 <Clayton Isabel - 10/29/18 14:06> 10/08/18 <Cadence Hooper - 10/11/18 17:04> Discharge date: 10/11/18 <Cadence Hooper - 10/11/18 17:04> HPI HPI: Ms. Mahoney is a 73-year-old female with history of oxygen dependent COPD, esophageal stricture, and degenerative disc disease who presented to [facility] with progressive shortness of breath over the last 2-3 days. She states she has not felt well since being seen in the office of [facility] on 09/13/2018 with severe back pain. She does have a history of multiple compression fractures and has had a previous kyphoplasty at T12. With this office visit her breathing status was stable. She states she has not had a fever, denies a sore throat, and does have a dry cough. She felt like she was going to last night. She does deny chest pain as well. She has had minimal p.o. intake. This a.m. patient is on Vapotherm at 35% and does feel better. She has been able to rest a little. She states her back is not hurting her at present. Troponin I's have been normal x3 <Cadence Hooper - 10/11/18 17:04> Hospital Course Hospital Course: The patient's chest x-ray showed nothing acute. She was continued on Vapotherm, Zithromax, Rocephin, and duo nebs. Her back pain improved. Outpatient x-rays a month prior showed no changes in her lower back, therefore x-rays of her lumbar spine were repeated as Dr. Isabel suspected a compression fracture. Her lumbar spine x-ray showed wedge compression changes at L1 and prior vertebroplasty at T12. She was started on norco. She was started on potassium supplementation d/t hypokalemia. A PT evaluation was ordered and they felt she was stable for discharge home when medically stable. Her Vapotherm was weaned and her sats remained >90%. She remained dyspneic with any exertion but did feel better. She preferred to be discharged home with home health rather than to a custodial facility. She reached her [facility] hospital benefit. She was discharged home with home health and will also schedule outpt appt with Dr. Simmons regarding her back pain. She will f/u at [facility] in 1 week. <Cadence Hooper - 10/13/18 11:44> Objective Vital signs: Temp Pulse Resp BP Pulse Ox 98.3 F 105 H 22 167/65 H 96 10/11/18 08:00 10/11/18 08:00 10/11/18 08:00 10/11/18 08:00 10/11/18 08:00 <MaameClayton ba Ki - 10/29/18 14:06> Temp Pulse Resp BP Pulse Ox 98.3 F 105 H 22 167/65 H 96 10/11/18 08:00 10/11/18 08:00 10/11/18 08:00 10/11/18 08:00 10/11/18 08:00 <Cadence Hooper - 10/11/18 17:04> Narrative: - Constitutional no acute distress Comments: Awakened for assessment. Remains on Vapotherm at 35%. She appears comfortable - *Routine HEENT Exam Head: Present: normocephalic, atraumatic Eye: Present: PERRL ENT: Present: mucous membranes moist, oropharynx clear, nares patent - *Routine Neck Exam Present: supple. Absent: lymphadenopathy, thyromegaly Comments: Unable to assess carotids due to Vapotherm noise - *Routine Respiratory Exam Comments: Diminished breath sounds posteriorly with fine bibasilar crackles. - *Routine Cardiovascular Exam Present: RRR - *Routine Abdominal Exam Present: soft, normoactive bowel sounds. Absent: tenderness, distended - *Routine Extremities Exam Absent: edema, calf tenderness Comments: Bilateral heel pain relieved by removal of IAIN hose. Skin is intact. - Routine Back/Spine/Pelvis Exam Back/Spine: Present: kyphosis. Absent: paraspinal tenderness, vertebral tenderness <Cadence Hooper - 10/11/18 17:04> Results Labs on day of discharge: Preliminary micro results at discharge 10/07/18 22:30 Blood Culture - Preliminary Blood NO GROWTH AFTER 48 HOURS 10/07/18 22:30 Blood Culture - Preliminary Blood NO GROWTH AFTER 48 HOURS <Cadence Hooper - 10/11/18 17:04> DS: Diagnosis - Discharge Diagnosis (1) Acute exacerbation of chronic obstructive airways disease Status: Acute (2) Acute bronchitis Status: Acute (3) Low back pain Status: Acute (4) Hyponatremia Status: Acute (5) Oxygen dependent Status: Chronic (6) Tobacco use disorder Status: Chronic (7) Aortic regurgitation Status: Acute (8) Hypokalemia Status: Acute (9) Compression fracture of L1 lumbar vertebra Status: Acute (10) Adult BMI <19 kg/sq m Status: Acute <Cadence Hooper - 10/13/18 11:41> (1) Acute exacerbation of chronic obstructive airways disease Status: Acute (2) Acute bronchitis Status: Acute (3) Low back pain Status: Chronic (4) Hyponatremia Status: Acute (5) Oxygen dependent Status: Chronic (6) Tobacco use disorder Status: Chronic (7) Aortic regurgitation Status: Acute (8) Hypokalemia Status: Acute (9) Compression fracture of L1 lumbar vertebra Status: Chronic (10) Adult BMI <19 kg/sq m Status: Acute <Clayton Isabel - 10/29/18 14:06> Discharge Plan - Patient Discharge Instructions ACTIVITY: Continue current activity <Cadence Hooper - 10/11/18 17:04> DIET: continue same diet <Cadence Hooper - 10/11/18 17:04> Patient Instructions: DI for Chronic Obstructive Pulmonary Disease, DI for Vertebral Fracture, DI for Shortness of Breath <Clayton Isabel - 10/29/18 14:06> Forms: <Clayton Isabel - 10/29/18 14:06> - Follow up Plan Follow up with: Tree Simmons MD [Staff Physician] - (L1 Compression fracture) Clayton Isabel MD [Primary Care Provider] - 1 week <Clayton Isabel - 10/29/18 14:06> Disposition: Home Health Service <Clayton Isabel - 10/29/18 14:06> Home Medications: Home Medications Medication Instructions Recorded Confirmed Type RX: Albuterol Sulfate [Albuterol 1 - 2 puffs IH Q4-6H PRN 08/15/18 10/24/18 History HFA Inhaler] RX: Duloxetine HCl [Cymbalta] 60 mg PO HS 08/15/18 10/24/18 History RX: Fluticasone/Vilanterol [Breo 1 each IH DAILY 08/15/18 10/24/18 History Ellipta 100-25 Mcg INH] RX: Furosemide [Furosemide 40MG 40 mg PO DAILYP PRN 08/15/18 10/24/18 History tAB] RX: Montelukast Sodium [Singulair 10 mg PO HS 08/15/18 10/24/18 History 10mg tablet] RX: Primidone [Mysoline] 50 mg PO TID 08/15/18 10/24/18 History RX: Umeclidinium [place] [Incruse 1 puff IH DAILY 08/15/18 10/24/18 History Ellipta] RX: Potassium Chloride [K-Tab ER 10 meq PO BID #0 08/19/18 10/24/18 Rx 10 mEq] RX: Cholecalciferol (Vitamin D3) 2,000 unit PO DAILY 10/08/18 10/24/18 History [Vitamin D3] RX: Melatonin 10 mg PO HS 10/08/18 10/24/18 History RX: Hydrocod/Acet 5/325 mg [[place] 1 tab PO Q6HP PRN #24 tab 10/11/18 10/25/18 Rx 5/325mg tablet] RX: Magnesium Oxide [Mag-Ox 400mg 400 mg PO BID 10/24/18 10/24/18 History Tab] RX: predniSONE [Deltasone 10mg 10 mg PO DAILY 10/24/18 10/24/18 History tablet] <Clayton Isabel - 10/29/18 14:06> Prescriptions/Medication Reconciliation: New RX: Hydrocod/Acet 5/325 mg [[place] 5/325mg tablet] 1 tab PO Q6HP PRN #24 tab PRN Reason: Moderate To Severe Pain Continue RX: Albuterol Sulfate [Albuterol HFA Inhaler] 1 - 2 puffs IH Q4-6H PRN PRN Reason: Shortness Of Breath Or Wheezing RX: Primidone [Mysoline] 50 mg PO TID RX: Fluticasone/Vilanterol [Breo Ellipta 100-25 Mcg INH] 1 each IH DAILY RX: Umeclidinium [place] [Incruse Ellipta] 1 puff IH DAILY RX: Furosemide [Furosemide 40MG tAB] 40 mg PO DAILYP PRN PRN Reason: FLUID RX: Potassium Chloride [K-Tab ER 10 mEq] 10 meq PO BID #0 RX: Cholecalciferol (Vitamin D3) [Vitamin D3] 2,000 unit PO DAILY RX: Melatonin 10 mg PO HS RX: Montelukast Sodium [Singulair 10mg tablet] 10 mg PO HS RX: Duloxetine HCl [Cymbalta] 60 mg PO HS No Action RX: predniSONE [Deltasone 10mg tablet] 10 mg PO DAILY RX: Magnesium Oxide [Mag-Ox 400mg Tab] 400 mg PO BID <Clayton Isabel - 10/29/18 14:06> - Additional Information Additional Information: Concur with plan for discharge. <Clayton Isabel - 10/29/18 14:06>
--- NOTE | 2018-10-11 17:37 | Progress Note ---
Internal Medicine - PN: Subj *Date: 10/11/18 *Time: 08:20 Interval history: Just got back to bed from [facility] and is dyspneic after exertion. Back pain about the same but feels like she slept a little better last night Still has some cough. States she prefers to go home with Home Health rather than go to SNF for rehab. Exam Vital signs and Labs for Last 24 Hours: Temp Pulse Resp BP Pulse Ox 98.3 F 105 H 22 167/65 H 96 10/11/18 08:00 10/11/18 08:00 10/11/18 08:00 10/11/18 08:00 10/11/18 08:00 I & O for Last 24 hours: Intake & Output 10/09/18 10/10/18 10/11/18 10/12/18 11:59 11:59 11:59 11:59 Intake Total 360 / 360 2495 / 2495 1020 / 1020 Output Total 200 / 200 1200 / 1200 Balance 160 / 160 1295 / 1295 1020 / 1020 Weight 91 lb 1 oz 96 lb 7 oz 205 lb 0.478 oz 93 lb Microbiology Reports for the Last 24 Hours: Microbiology 10/09/18 11:00 Sputum - Expectorated Sputum Gram Stain - Final 10/09/18 11:00 Sputum - Expectorated Sputum Sputum Culture - Final Normal Respiratory Bailee Narrative: Recorded weight of 205 in the chart this AM is inaccurate - Constitutional Comments: Dyspne at baseline. O2 sats are stable in 90s on 3 liters NC. - *Routine Respiratory Exam Comments: generally diminished BS with coarse rhonchi. No wheezes - *Routine Cardiovascular Exam Present: RRR, murmur - *Routine Abdominal Exam Present: soft. Absent: tenderness - *Routine Extremities Exam Comments: trace edema Assessment and Plan (1) Acute exacerbation of chronic obstructive airways disease Status: Acute Category: Medical Code(s): J44.1 - Chronic obstructive pu lmonary disease with (acute) exacerbation (2) Acute bronchitis Status: Acute Qualifiers: Bronchitis organism: unspecified organism Qualified Code(s): J20.9 - Acute bronchitis, unspecified Category: Medical Code(s): J20.9 - Acute bronchitis, unspecified (3) Low back pain Status: Acute Category: Medical Code(s): M54.5 - Low back pain (4) Hyponatremia Status: Acute Category: Medical Code(s): E87.1 - Hypo-osmolality and hyponatremia (5) Oxygen dependent Status: Chronic Category: Medical Code(s): Z99.81 - Dependence on supplemental oxygen (6) Tobacco use disorder Status: Chronic Category: Medical Code(s): F17.200 - Nicotine dependence, unspecified, uncomplicated (7) Aortic regurgitation Status: Acute Category: Medical Code(s): I35.1 - Nonrheumatic aortic (valve) insufficiency (8) Hypokalemia Status: Acute Category: Medical Code(s): E87.6 - Hypokalemia (9) Compression fracture of L1 lumbar vertebra Status: Acute Category: Medical Code(s): S32.010A - Wedge compression fracture of first lumbar vertebra, initial encounter for closed fracture (10) Adult BMI <19 kg/sq m Status: Acute Category: Medical Code(s): Z68.1 - Body mass index (BMI) 19.9 or less, adult - Assessment and plan all Dx Assessment and Plan for all problems:: Has reached [facility] hospital benefit. I think she would benefit from short term rehab in SNF but she declines. SHe is agreeable to Home health and PT. Will discharge home and arrange home health and will also schedule outpt appt with Dr. Simmons regarding her back pain. SHe will f/u in office in 1 week.
== END 2018-10-11 10:50 | disposition home health service (06) | DRG 191 ==
LOC: ICU 22:14 → ER 22:14 → OBSVTOIN 10-08 02:25 → ICU 10-08 02:30 → 2ND 10-08 12:09
PROVIDERS: ADMIT Emergency Medicine; ATTEND Family Medicine
CPT/HCPCS: 36415; 71010; 71045; 72100; 80048; 80053; 82803; 83605; 83735; 84484; 85007; 85025; 87040; 87070; 87205; 87275; 87276; 93005; 94640; 94760; 94761; 96365; 96367; 96375; 96376; 97162; 99285; J0456; J2405

== ENCOUNTER → 2018-10-15 13:09 | Outpatient (POV) | payer MEDICARE, SELFPAY ==
[2018-10-15 13:51] VITALS: BP 110/75; PULSE 60
--- NOTE | 2018-10-15 13:56 | HMH.PMCON ---
Assessment and Plan (1) Back pain Current visit: No Status: Chronic Category: Medical Code(s): M54.9 - Dorsalgia, unspecified (2) Low back pain Current visit: No Status: Chronic Category: Medical Code(s): M54.5 - Low back pain (3) Compression fracture of L1 lumbar vertebra Current visit: No Status: Chronic Category: Medical Code(s): S32.010A - Wedge compression fracture of first lumbar vertebra, initial encounter for closed fracture - Assessment and plan all Dx Assessment and Plan for all problems:: We will review her MRI to see if she is a candidate for kyphoplasty if she is we will move forward with this. At this time we will provided back brace to help with the management pain Dr. Simmons has reviewed this note and agrees with this plan of care. This note was dictated using voice recognition software and may contain errors or omissions HPI - Data of Consult Consult date: 10/15/18 Requesting Physician: Inge Ramsey APRN Primary Care Provider: Clayton Isabel MD - Consult Narrative Reason for consult: Back pain History of present illness: Ms. Mahoney is a 73 year old female who presents today for consultation in regards her back pain. Patient has had a compression fracture in the past with a vertebroplasty. Patient had a recent hospital stay and it was deemed possible she has a new compression fracture L1. Patient has set up for an MRI tomorrow. I gave the options in regards to epidurals/bracing/kyphoplasty. Patient's will think about which options she would like to move forward with. CC: Inge Ramsey APRN [facility] History I have reviewed the patient's past medical history: Yes Medical History: Reports:: Chronic Obstructive Pulmonary Disease (COPD) (oxygen dependent) Denies:: Cancer, Diabetes Mellitus Type 1, Diabetes Mellitus Type 2, MRSA Have you ever received a pneumonia vaccine?: Yes Have you received a flu vaccine this season?: Yes Other Medical History: Reports: Arthritis, Cataracts, FibromyalgiaComment Only: Thyroid Disease (compression fracture) Laterality Cases: Right: Other, Bilateral: Tonsillectomy Other Surgeries: Yes: Cholecystectomy, Tubal Ligation, Other (Right Foot, vertebroplasty) Amputation: No Fractures: Yes (compression fracture) - *Social History Smoking Status: Current every day smoker Tobacco Type: cigarettes # Packs/Day (cigarettes): 1 #Yrs smoked (if former smoker): 58 Alcohol Intake: never Occupational Status: retired Housing: house Household Members: family Travel in the last 8 weeks: None - Psychiatric History Expresses thoughts of harming self/others: None Suicide Plan Description: No Plan *Family Hx:: Heart Attack Review of Systems - Review of Systems ROS General: no recent weight change, no fever, no sleep disturbances Respiratory: no cough, no shortness of air, no recurring pulmonary infections Cardiovascular/Peripheral Vascular: No chest pain, No palpitations, no edema, no shortness of breath. Gastrointestinal: no incontinence, normal bowel movements reported Genitourinary: no incontinence Musculoskeletal: Back pain Psychiatric: normal mood/ affect Neurological: [denies weakness in extremities], [denies balance issues] Meds Home Medications Medication Instructions Recorded Confirmed Type Albuterol Sulfate [Albuterol HFA 1 - 2 puffs IH Q4-6H PRN 08/15/18 10/08/18 History Inhaler] Duloxetine HCl [Cymbalta] 60 mg PO HS 08/15/18 10/08/18 History Fluticasone/Vilanterol [Breo 1 each IH DAILY 08/15/18 10/08/18 History Ellipta 100-25 Mcg INH] Furosemide [Furosemide 40MG tAB] 40 mg PO DAILYP PRN 08/15/18 10/08/18 History Montelukast Sodium [Singulair 10mg 10 mg PO HS 08/15/18 10/08/18 History tablet] Primidone [Mysoline] 50 mg PO TID 08/15/18 10/08/18 History Umeclidinium [place] [Incruse 1 puff IH DAILY 08/15/18 10/08/18 History Ellipta] Potassium Chloride [K-Tab ER 10 10 meq PO BID #0 08/19/18
--- NOTE | 2018-10-15 13:59 | P.CONS_ITS ---
Assessment and Plan (1) Back pain Current visit: No Status: Chronic Category: Medical Code(s): M54.9 - Dorsalgia, unspecified (2) Low back pain Current visit: No Status: Chronic Category: Medical Code(s): M54.5 - Low back pain (3) Compression fracture of L1 lumbar vertebra Current visit: No Status: Chronic Category: Medical Code(s): S32.010A - Wedge compression fracture of first lumbar vertebra, initial encounter for closed fracture - Assessment and plan all Dx Assessment and Plan for all problems:: We will review her MRI to see if she is a candidate for kyphoplasty if she is we will move forward with this. At this time we will provided back brace to help with the management pain Dr. Simmons has reviewed this note and agrees with this plan of care. This note was dictated using voice recognition software and may contain errors or omissions HPI - Data of Consult Consult date: 10/15/18 Requesting Physician: Inge Ramsey APRN Primary Care Provider: Clayton Isabel MD - Consult Narrative Reason for consult: Back pain History of present illness: Ms. Mahoney is a 73 year old female who presents today for consultation in regards her back pain. Patient has had a compression fracture in the past with a vertebroplasty. Patient had a recent hospital stay and it was deemed possible she has a new compression fracture L1. Patient has set up for an MRI tomorrow. I gave the options in regards to epidurals/bracing/kyphoplasty. Patient's will think about which options she would like to move forward with. CC: Inge Ramsey APRN [facility] History I have reviewed the patient's past medical history: Yes Medical History: Reports:: Chronic Obstructive Pulmonary Disease (COPD) (oxygen dependent) Denies:: Cancer, Diabetes Mellitus Type 1, Diabetes Mellitus Type 2, MRSA Have you ever received a pneumonia vaccine?: Yes Have you received a flu vaccine this season?: Yes Other Medical History: Reports: Arthritis, Cataracts, FibromyalgiaComment Only: Thyroid Disease (compression fracture) Laterality Cases: Right: Other, Bilateral: Tonsillectomy Other Surgeries: Yes: Cholecystectomy, Tubal Ligation, Other (Right Foot, vertebroplasty) Amputation: No Fractures: Yes (compression fracture) - *Social History Smoking Status: Current every day smoker Tobacco Type: cigarettes # Packs/Day (cigarettes): 1 #Yrs smoked (if former smoker): 58 Alcohol Intake: never Occupational Status: retired Housing: house Household Members: family Travel in the last 8 weeks: None - Psychiatric History Expresses thoughts of harming self/others: None Suicide Plan Description: No Plan *Family Hx:: Heart Attack Review of Systems - Review of Systems ROS General: no recent weight change, no fever, no sleep disturbances Respiratory: no cough, no shortness of air, no recurring pulmonary infections Cardiovascular/Peripheral Vascular: No chest pain, No palpitations, no edema, no shortness of breath. Gastrointestinal: no incontinence, normal bowel movements reported Genitourinary: no incontinence Musculoskeletal: Back pain Psychiatric: normal mood/ affect Neurological: [denies weakness in extremities], [denies balance issues] Meds Home Medications Medication Instructions Recorded Confirmed Type Albuterol Sulfate [Albuterol HFA 1 - 2 puffs IH Q4-6H PRN 08/15/18 10/08/18 History Inhaler] Duloxetine HCl [Cymbalta] 60 mg
== END ==
PROVIDERS: PCP Family Medicine; Visit Provider Clinical Nurse Specialist Family Health
DX: S32.010A Wedge compression fracture of first lumbar vertebra, initial encounter for closed fracture (principal)
CPT/HCPCS: 99202

== ENCOUNTER → 2018-10-16 13:37 | Outpatient (CLI) | payer MEDICARE, SELFPAY ==
--- NOTE | 2018-10-16 13:42 | MR_ITS ---
MR lumbar spine wo con HISTORY: PT states low back pain X 4 Weeks. No injury. ITS.REASON: ACUTE MIDLINE LOW BACK PAIN WITHOUT SCIATICA ORDERING PHYSICIAN: Clayton Isabel MD PATIENT AGE: 73 years Comparison: 10/08/2018 TECHNIQUE: Standard multiplanar multiecho sequences are performed without contrast. 3-D MIP and myelographic images are also rendered and reviewed FINDINGS: There is normal alignment. The spinal cord ends at the L2 level. T10-T11: There are moderate anterior wedge compression changes involving T11. T11 vertebral body is hypointense on T1 and becomes hyperintense on T2. This is consistent with acute wedge compression fracture with loss of height centrally and anteriorly of approximately 40%. There is some mild buckling of the posterior cortex of T11 protruding posteriorly by approximately 3 mm. No cord compression T11-T12: Mild kyphosis. There has been prior vertebroplasty at T12 with chronic wedge compression fracture of T12 centrally and anteriorly of approximately 30 sent and mild protrusion of the posterior superior aspect of T11 posteriorly x 3 mm. No cord compression. T12-L1: There is mild deformity involving L1 with a concave shape of both the superior and inferior endplate of L1. Along the inferior endplate there is slight decreased T1 and slightly increased T2 signal consistent with mild wedge compression changes. There is loss of height centrally of approximately 40%. No retropulsed fragments. L1-L2: Unremarkable. L2-L3: There is a concave deformity along the inferior endplate of L2 which appears more chronic.. L3-L4: Mild concentric bulging disc with minimal central disc protrusion along with facet and ligamentum flavum hypertrophy with mild bilateral lateral recess and foraminal narrowing. L4-L5: Minimal bulging disc. L5-S1: Minimal bulging disc. No extruded herniated disc is evident. IMPRESSION: 1. Acute wedge compression fracture involving T11 with loss of height centrally and anteriorly of 40% with minimal posterior protrusion of the posterior superior aspect of T11 x 3 mm without cord compression. 2. Chronic wedge compression changes T12 status post prior kyphoplasty 3. Concave deformity of L1 along both superior and inferior endplate. The inferior endplate compression deformity is felt to be acute. No retropulsion. 4. Bulging disc with minimal central disc protrusion at L3-L4. 5. Please see above for detailed description at each level
== END ==
PROVIDERS: PCP Family Medicine; Visit Provider Family Medicine
DX: M54.5 Low back pain (principal)
CPT/HCPCS: 72148; 76376

== ENCOUNTER → 2018-11-05 11:16 | Outpatient (POV) | payer MEDICARE, SELFPAY ==
[2018-11-05 11:29] VITALS: BP 143/49; PULSE 121; RESP 18; O2SAT 99; BMI 18.1
--- NOTE | 2018-11-05 12:39 | HMH.PAINSOAP ---
[facility] Pain Management SOAP Note Subjective:: Patient is a pleasant 73-year-old white female who presents today after kyphoplasty at the T11 and L1 levels. Patient states she is doing well she rates her pain a 1 out of 10. Patient does have some soreness over her right lumbar paraspinous but other than that is doing well ROS General: no recent weight change, no fever, no sleep disturbances Respiratory: no cough, no shortness of air, no recurring pulmonary infections Cardiovascular/Peripheral Vascular: No chest pain, No palpitations, no edema, no shortness of breath. Gastrointestinal: no incontinence, normal bowel movements reported Genitourinary: no incontinence Musculoskeletal: Myofascial pain Psychiatric: normal mood/ affect Neurological: [denies weakness in extremities], [denies balance issues] Objective:: Physical Exam General: Alert and oriented x3, no acute distress, pleasant and cooperative, [on room air] Lungs: Resps E/U, Symmetrical chest expansion, Eyes: PERRL Musculoskeletal: Flexion and extension of lumbar spine somewhat guarded secondary to pain, deep tendon reflexes normal, strength in upper and lower extremities [5/5], slightly antalgic gait noted Neurological: speech clear, resourcing consultant equal, no gross sensory deficits Assessment:: Status post kyphoplasty, myofascial pain Plan:: We will do some trigger point injections on her right side when it is convenient for her. Otherwise patient is doing well. I will follow-up the patient at the time of her injections. Dr. Simmons has reviewed this note and agrees with this plan of care. This note was dictated using voice recognition software and may contain errors or omissions
== END ==
PROVIDERS: PCP Family Medicine; Visit Provider Clinical Nurse Specialist Family Health
DX: Z98.890 Other specified postprocedural states (principal); M79.18 Myalgia, other site
CPT/HCPCS: 99213

== ENCOUNTER → 2018-12-17 11:16 | Outpatient (POV) | payer MEDICARE, SELFPAY ==
--- NOTE | 2018-12-17 12:23 | XR_ITS ---
EXAM: XR thoracic spine 3V HISTORY: Back pain ITS.REASON: BACK PAIN Comparison: 08/15/2018 FINDINGS: There is moderate thoracic kyphosis with multiple compression fractures of the osteopenic thoracic spine. There has been prior vertebral plasty at L1, T12, and T11. Chronic wedge compression fracture involves T9 and T7 and T6 which are similar to 08/15/2018. The vertebral plasty at T11 and L1 are new compared to the previous exam with mild compression changes at T11 and L1. There is diffuse osteopenia. No acute fracture or dislocation is evident. IMPRESSION: Kyphosis with multiple wedge compression changes in prior kyphoplasty as detailed above. No definite acute finding.
--- NOTE | 2018-12-17 12:32 | HMH.PAINSOAP ---
[facility] Pain Management SOAP Note Subjective:: Patient is a pleasant 73-year-old white female who presents today after trigger point injections. Patient is doing extremely well. Rates her pain a 3 out of 10 today. Patient is having increased back pain. She would like an x-ray to help determine if she has an additional compression fracture I do believe this would be beneficial thing to do. Patient has some trigger points palpable on her right side. Patient would like to have these were we injected at some point. ROS General: no recent weight change, no fever, no sleep disturbances Respiratory: no cough, no shortness of air, no recurring pulmonary infections Cardiovascular/Peripheral Vascular: No chest pain, No palpitations, no edema, no shortness of breath. Gastrointestinal: no incontinence, normal bowel movements reported Genitourinary: no incontinence Musculoskeletal: Back pain, myofascial pain Psychiatric: normal mood/ affect Neurological: [denies weakness in extremities], [denies balance issues] Objective:: Physical Exam General: Alert and oriented x3, no acute distress, pleasant and cooperative, [on room air] Lungs: Resps E/U, Symmetrical chest expansion, Eyes: PERRL Musculoskeletal: Flexion and extension of lumbar spine somewhat guarded secondary to pain, deep tendon reflexes normal, strength in upper and lower extremities [5/5], slightly antalgic gait noted Neurological: speech clear, guest request runner equal, no gross sensory deficits Assessment:: History of compression fracture, myofascial pain syndrome Plan:: We will order an x-ray to help determine if she has any additional compression fractures. We will also set her up for trigger point injections of the right lumbar paraspinous. Dr. Simmons has reviewed this note and agrees with this plan of care. This note was dictated using voice recognition software and may contain errors or omissions
--- NOTE | 2018-12-17 12:35 | P.CONS_ITS ---
[facility] Pain Management SOAP Note Subjective:: Patient is a pleasant 73-year-old white female who presents today after trigger point injections. Patient is doing extremely well. Rates her pain a 3 out of 10 today. Patient is having increased back pain. She would like an x-ray to help determine if she has an additional compression fracture I do believe this would be beneficial thing to do. Patient has some trigger points palpable on her right side. Patient would like to have these were we injected at some point. ROS General: no recent weight change, no fever, no sleep disturbances Respiratory: no cough, no shortness of air, no recurring pulmonary infections Cardiovascular/Peripheral Vascular: No chest pain, No palpitations, no edema, no shortness of breath. Gastrointestinal: no incontinence, normal bowel movements reported Genitourinary: no incontinence Musculoskeletal: Back pain, myofascial pain Psychiatric: normal mood/ affect Neurological: [denies weakness in extremities], [denies balance issues] Objective:: Physical Exam General: Alert and oriented x3, no acute distress, pleasant and cooperative, [on room air] Lungs: Resps E/U, Symmetrical chest expansion, Eyes: PERRL Musculoskeletal: Flexion and extension of lumbar spine somewhat guarded secondary to pain, deep tendon reflexes normal, strength in upper and lower extremities [5/5], slightly antalgic gait noted Neurological: speech clear, analyst sales equal, no gross sensory deficits Assessment:: History of compression fracture, myofascial pain syndrome Plan:: We will order an x-ray to help determine if she has any additional compression fractures. We will also set her up for trigger point injections of the right lumbar paraspinous. Dr. Simmons has reviewed this note and agrees with this plan of care. This note was dictated using voice recognition software and may contain errors or omissions
[2018-12-17 13:43] VITALS: BP 159/68; PULSE 105; RESP 18; O2SAT 98; BMI 17.7
== END ==
PROVIDERS: PCP Family Medicine; Visit Provider Clinical Nurse Specialist Family Health
DX: M79.18 Myalgia, other site (principal); S32.010D Wedge compression fracture of first lumbar vertebra, subsequent encounter for fracture with routine healing; M54.9 Dorsalgia, unspecified
CPT/HCPCS: 72072; 99213

== ENCOUNTER → 2019-02-07 12:55 | Outpatient (POV) | payer MEDICARE, SELFPAY ==
[2019-02-07 13:08] VITALS: BP 128/43; PULSE 101; RESP 21; O2SAT 96; BMI 19.5
--- NOTE | 2019-02-07 13:17 | P.CONS_ITS ---
[facility] Pain Management SOAP Note Subjective:: This patient is a pleasant 73-year-old white female who we are treating for low back pain with kyphoscoliosis and myofascial pain throughout the lumbar paraspinous area status post trigger point injections. She is doing very well after trigger point injections. She also had a previous compression fracture status post kyphoplasty. Overall she is doing well with her back pain. She did aggravate her back pain picking up a cat recently. She is unable to wear back brace because it is uncomfortable due to her significant kyphoscoliosis. I believe she may do better with an abdominal binder. She is also taking an excessive amount of ibuprofen and Tylenol and having stomach issues. We will switch her to tramadol 50 mg twice a day. If this does not help or this is too strong we may try Duexis. Objective:: Alert and oriented x3 no acute distress. She does have an antalgic gait. Motor strength of the lower extremities is 5/5. There is no gross sensory deficit. Tenderness with trigger points identified throughout the lumbar paraspinous area. Assessment:: Degenerative disc disease of lumbar spine with lumbar radiculopathy symptoms with significant kyphoscoliosis and myofascial pain throughout the lumbar paraspinous area. Plan:: We will get her an abdominal binder to help with some additional support throughout the thoracic and lumbar spine. We will also start her on tramadol 50 mg twice a day to see if this helps with her pain symptoms. She is to stop taking any ibuprofen and Tylenol. We will follow-up with her in 1 month. We will reevaluate her symptoms and plan on trigger point injections if needed. If she cannot tolerate tramadol or if it does not help we may switch to Duexis.
== END ==
PROVIDERS: PCP Family Medicine; Visit Provider Anesthesiology
DX: M51.16 Intervertebral disc disorders with radiculopathy, lumbar region (principal)
CPT/HCPCS: 99212

== ENCOUNTER → 2019-03-03 13:04 | Outpatient (POV) | payer MEDICARE, SELFPAY ==
[2019-03-03 13:16] VITALS: BP 146/59; PULSE 113; RESP 20; O2SAT 97; BMI 16.5
--- NOTE | 2019-03-03 13:25 | HMH.PAINSOAP ---
[facility] Pain Management SOAP Note Subjective:: Patient is a pleasant 73-year-old white female who presents today for follow-up for trigger point injections. The patient does have a history of compression fracture status post kyphoplasty. She is also being treated for low back pain with kyphoscoliosis and myofascial pain throughout the lumbar paraspinous area. Patient says she is doing well. She rates her pain a 0 out of 10. She says the trigger points were 100% effective. The patient has attempted to use tramadol in the past, but felt it was too strong. She is currently been taking ibuprofen up to 3 times a day and having stomach issues. ROS General: no recent weight change, no fever, no sleep disturbances Respiratory: no cough, no shortness of air, no recurring pulmonary infections Cardiovascular/Peripheral Vascular: No chest pain, No palpitations, no edema, no shortness of breath. Gastrointestinal: no incontinence, normal bowel movements reported Genitourinary: no incontinence Musculoskeletal: Back pain Psychiatric: normal mood/ affect, [denies depression], [denies anxiety] Neurological: [denies weakness in extremities], [denies balance issues] Objective:: Physical Exam General: Alert and oriented x3, no acute distress, pleasant and cooperative, [on room air] Lungs: Resps E/U, Symmetrical chest expansion, Eyes: PERRL Musculoskeletal: Flexion and extension of thoracic and lumbar spine somewhat guarded secondary to pain, deep tendon reflexes normal, strength in upper and lower extremities [5/5], slightly antalgic gait noted, kyphosis noted] Neurological: speech clear, road design draftsperson equal, no gross sensory deficits Assessment:: Degenerative disc disease of lumbar spine with lumbar radiculopathy, kyphoscoliosis and myofascial pain throughout the lumbar paraspinous area. Plan:: We will give the patient an nominal binder today to help with additional support of the thoracic and lumbar spine. Continue anti-inflammatories. We will prescribe her Duexis to see if that is beneficial for pain and GI issues. Patient will follow-up in 1 month. Been instructed to call the office if she has any issues prior to that appointment.Dr. Simmons has reviewed this note and agrees with this plan of care. This note was dictated using voice recognition software and may contain errors or omissions
--- NOTE | 2019-03-03 13:29 | P.CONS_ITS ---
[facility] Pain Management SOAP Note Subjective:: Patient is a pleasant 73-year-old white female who presents today for follow-up for trigger point injections. The patient does have a history of compression fracture status post kyphoplasty. She is also being treated for low back pain with kyphoscoliosis and myofascial pain throughout the lumbar paraspinous area. Patient says she is doing well. She rates her pain a 0 out of 10. She says the trigger points were 100% effective. The patient has attempted to use tramadol in the past, but felt it was too strong. She is currently been taking ibuprofen up to 3 times a day and having stomach issues. ROS General: no recent weight change, no fever, no sleep disturbances Respiratory: no cough, no shortness of air, no recurring pulmonary infections Cardiovascular/Peripheral Vascular: No chest pain, No palpitations, no edema, no shortness of breath. Gastrointestinal: no incontinence, normal bowel movements reported Genitourinary: no incontinence Musculoskeletal: Back pain Psychiatric: normal mood/ affect, [denies depression], [denies anxiety] Neurological: [denies weakness in extremities], [denies balance issues] Objective:: Physical Exam General: Alert and oriented x3, no acute distress, pleasant and cooperative, [on room air] Lungs: Resps E/U, Symmetrical chest expansion, Eyes: PERRL Musculoskeletal: Flexion and extension of thoracic and lumbar spine somewhat guarded secondary to pain, deep tendon reflexes normal, strength in upper and l ower extremities [5/5], slightly antalgic gait noted, kyphosis noted] Neurological: speech clear, human resource management instructor equal, no gross sensory deficits Assessment:: Degenerative disc disease of lumbar spine with lumbar radiculopathy, kyphoscoliosis and myofascial pain throughout the lumbar paraspinous area. Plan:: We will give the patient an nominal binder today to help with additional support of the thoracic and lumbar spine. Continue anti-inflammatories. We will prescribe her Duexis to see if that is beneficial for pain and GI issues. Patient will follow-up in 1 month. Been instructed to call the office if she has any issues prior to that appointment.Dr. Simmons has reviewed this note and agrees with this plan of care. This note was dictated using voice recognition software and may contain errors or omissions
== END ==
PROVIDERS: PCP Family Medicine; Visit Provider Clinical Nurse Specialist Family Health
DX: M51.16 Intervertebral disc disorders with radiculopathy, lumbar region (principal); M79.18 Myalgia, other site; M41.9 Scoliosis, unspecified
CPT/HCPCS: 99212